=== PATIENT | female | born 1950 | race Caucasian/White ===

== ENCOUNTER → 2016-09-30 | Outpatient (CLI) | payer OTHER ==
[~2016-09-30] MED LIST: ASPEC81 PO; INSDGI SQ; ISOS60TA25 PO; LOSA100T2 PO; NAPR-1169 PO; NITR-5 PO; NVLGI SQ; OMEP40CA PO; PRAV20TA PO; PROB1CAP41 PO; SITA1TAB27 PO; SOTA80TA PO; TAMS0.4C38 PO
== END | disposition home or self-care (01) ==
LOC: C.LAB 12:41
PROVIDERS: ATTEND Nurse Practitioner Adult Health
DX: N39.0 Urinary tract infection, site not specified (principal); N39.41 Urge incontinence

== ENCOUNTER → 2016-12-17 | Outpatient (CLI) | payer OTHER ==
[~2016-12-17] MED LIST changes: +AMLO-114 PO; +CPR500 PO; +CZR50 PO; +FAMO1TAB47 PO; +FERR1TAB13 PO; +HYDR-5688 PO; +INSDGIPEN SC; +ISOS-10 PO; +NRV/10 PO; +NRV/5 PO; +NVLGI/PEN SQ
== END | disposition home or self-care (01) ==
LOC: C.LABSPEC 15:27
PROVIDERS: ATTEND Urology
DX: R39.15 Urgency of urination (principal); R35.0 Frequency of micturition

== ENCOUNTER → 2017-01-17 | Outpatient (CLI) | payer OTHER | END | disposition home or self-care (01) | LOC: C.LABSPEC 17:12 | PROVIDERS: ATTEND Nurse Practitioner Adult Health | DX: N39.0 Urinary tract infection, site not specified (principal); R31.0 Gross hematuria ==

== ENCOUNTER → 2017-02-03 | Outpatient (CLI) | payer OTHER | END | disposition home or self-care (01) | LOC: C.LABSPEC 17:27 | PROVIDERS: ATTEND Nurse Practitioner Family | DX: N39.0 Urinary tract infection, site not specified (principal); R39.15 Urgency of urination; R31.29 Other microscopic hematuria; R35.0 Frequency of micturition ==

== ENCOUNTER → 2017-04-11 | Outpatient (CLI) | payer OTHER ==
[~2017-04-11] MED LIST changes: -AMLO-114 PO; -CPR500 PO; -CZR50 PO; -FAMO1TAB47 PO; -FERR1TAB13 PO; -HYDR-5688 PO; -INSDGIPEN SC; -ISOS-10 PO; -NRV/10 PO; -NRV/5 PO; -NVLGI/PEN SQ
== END | disposition home or self-care (01) ==
LOC: C.LABSPEC 11:08
PROVIDERS: ATTEND Urology
DX: N39.41 Urge incontinence (principal)

== ENCOUNTER → 2017-05-23 | Outpatient (CLI) | payer OTHER | END | disposition home or self-care (01) | LOC: C.LABSPEC 17:00 | PROVIDERS: ATTEND Urology | DX: N39.0 Urinary tract infection, site not specified (principal) ==

== ENCOUNTER → 2017-06-29 | Outpatient (CLI) | payer OTHER ==
[~2017-06-29] MED LIST changes: +CZR50 PO; +FAMO1TAB47 PO; +FERR1TAB13 PO; +INSDGIPEN SC; +ISOS-10 PO; +NRV/5 PO; +NVLGI/PEN SQ
== END | disposition home or self-care (01) ==
LOC: C.LABSPEC 17:04
PROVIDERS: ATTEND Urology
DX: N39.0 Urinary tract infection, site not specified (principal)

== ENCOUNTER 2017-07-01 12:51 | Inpatient (IN) | payer OTHER ==
[~2017-07-01] VITALS: Ht 160 cm; Wt 110.6 kg
[~2017-07-01 12:51] MED LIST changes: -CZR50 PO; -FAMO1TAB47 PO; -FERR1TAB13 PO; -INSDGIPEN SC; -ISOS-10 PO; -NRV/5 PO; -NVLGI/PEN SQ
[2017-07-01] MEDS ORDERED: NRV/5 PO (13:32)
[2017-07-01] MEDS ORDERED: FERR1TAB13 PO (13:32)
[2017-07-01] MEDS ORDERED: ISOS-10 PO (13:32)
[2017-07-01] MEDS ORDERED: CZR50 PO (13:32)
[2017-07-01] MEDS ORDERED: FAMO1TAB47 PO (13:32)
[2017-07-01] MEDS ORDERED: PRAV20TA PO (13:32)
[2017-07-01] MEDS ORDERED: NVLGI/PEN SQ (13:32)
[2017-07-01] MEDS ORDERED: INSDGIPEN SC (13:32)
[2017-07-01] MEDS ORDERED: SODIUM CHLORIDE 0.9% 1000ML 1,000 ML IV STA (14:14)
--- NOTE | 2017-07-01 14:15 | EMERGENCY ROOM VISIT NOTE ---
History Report prepared by Kj: Jarod Conklin Under the Supervision of: Dr. Lexis Ward M.D. First contact with patient: 13:55 Chief Complaint: OTHER COMPLAINT Stated Complaint: KIDNEY BLOCKAGE, SENT BY DR PIKE History of Present Illness The patient is a 67 year old female with kidney failure who presents to the Emergency Room with complaints of persistent flank pain and abdominal pain that started earlier this morning. She says that she has blockages in her kidneys and is in kidney failure. The patient states that she was scheduled to have surgery on the May to have a scope of her bladder, but did not have it. She follows-up with Dr. Emanuel of urology. She adds that she was seen nephrology in [place] 4 days ago, and had an ultrasound, and was told that she needed to have emergency surgery to have 2 stents placed. The patient was told that nephrology would call Dr. Emanuel about the issue. The patient adds that she is currently being treated for a UTI has well. She notes that she woke up today with back pain and abdominal cramping, so she called her nephrology office, and was told to come here because she still needs the emergency stent placement. Source of History: patient Onset: This morning Position: abdomen Symptom Intensity: says needs emergency stent placement Quality: other (cramping) Timing: other (persistent) Note: Associated symptoms: Bilateral flank pain. Review of Systems See HPI for pertinent positives & negatives. A total of 10 systems reviewed and were otherwise negative. Past Medical & Surgical Medical Problems: (1) bilateral hydroureternephrosis (2) Diabetes (3) Heart disease (4) HTN (hypertension) Family History Cancer Diabetes mellitus Heart disease Kidney disease Social History Smoking Status: Never Smoker Smokeless Tobacco Use: No Alcohol Use: occasionally Marital Status: Occupation Status: retired Current/Historical Medications Scheduled Amlodipine Besylate (Amlodipine Besylate), 5 MG PO QAM Famotidine (Famotidine), 20 MG PO BID Ferrous Sulfate (Kp Ferrous Sulfate), 325 MG PO BID Insulin Aspart (Novolog Flexpen), 4 UNITS SQ TIDM Insulin Glargine (Lantus Solostar), 10 UNITS SC HS Isosorbide Mononitrate (Isosorbide Mononitrate ER), 60 MG PO QAM Losartan Potassium (Losartan Potassium), 50 MG PO DAILY Pravastatin (Pravachol ), 20 MG PO HS Allergies Coded Allergies: No Known Allergies (Verified , 07/01/17) Physical Exam Vital Signs Date Time Temp Pulse Resp B/P (MAP) Pulse Ox O2 Delivery O2 Flow Rate FiO2 07/01/17 16:18 98 Room Air 07/01/17 15:26 63 162/78 98 Room Air 07/01/17 14:36 66 07/01/17 14:31 68 18 153/74 96 Room Air 07/01/17 13:00 36.9 74 20 167/87 97 Room Air Physical Exam Vital signs reviewed. General: Well-appearing 67 year old female, in no significant distress. HEENT: No scleral icterus, PERRLA, neck supple. Atraumatic. Cardiovascular: Regular rate and rhythm, no extra sounds. Pulmonary: Clear to auscultation bilaterally, normal work of breathing. Abdomen: Obese abdomen. Soft, nontender, nondistended, positive bowel sounds. Musculoskeletal: Atraumatic, no peripheral edema. No significant CVA tenderness. Neurologic: Patient awake alert and oriented x 3, full strength in all 4 extremities. Cranial nerves 2 through 12 grossly intact. Skin: Warm, dry, no rash Medical Decision & Procedures ER Provider Diagnostic Interpretation: CT results as stated below per my review and radiologist interpretation: CT SCAN OF THE ABDOMEN AND PELVIS WITHOUT IV CONTRAST CLINICAL HISTORY: Bilateral flank pain. COMPARISON STUDY: Abdominal CT dated 08/12/2015. TECHNIQUE: CT scan of the abdomen and pelvis is performed from the lung bases to the proximal femora. Images are reviewed in the axial, sagittal, and coronal planes. IV contrast was not administered for this examination as per the referring clinician due to poor renal function. Note that the examination is suboptimal without IV contrast. A dose lowering technique was utilized adhering to the principles of ALARA. CT DOSE: 994.54 mGycm FINDINGS: Lung bases: The heart is normal in size and without pericardial effusion. The coronary arteries are densely calcified. The lung bases are clear. Liver: The unenhanced liver is normal in size and heterogeneous in attenuation. There is nodularity of the hepatic surface contour suggesting early change of cirrhosis. There is no intrahepatic biliary ductal dilatation. Gallbladder: There are calcified gallstones. Spleen: Normal in size and attenuation. Pancreas: The unenhanced pancreas is atrophic and grossly unremarkable. Adrenal glands: Unremarkable. Kidneys: The unenhanced kidneys are atrophic. There is moderate to severe bilateral hydroureteronephrosis. The ureters are dilated to the level of the abnormal bladder. There are no renal calculi identified. There is no evidence of contour deforming renal mass lesion. There is mild nonspecific bilateral perinephric stranding. Abdominal vasculature: The abdominal aorta is normal in course and caliber noting advanced atherosclerotic calcification. Bowel: There is moderate to advanced diverticulosis of the left colon without CT evidence of acute diverticulitis. No bowel obstruction is seen. The appendix is not identified Peritoneum: There is no intraperitoneal free air or abdominal ascites. There is a small fat-containing umbilical hernia. Lymphadenopathy: None. Pelvic viscera: The bladder is decompressed. The bladder wall is thickened and there is extensive pericystic inflammation. A small focus of intraluminal gas is identified. The uterus is surgically absent. No adnexal lesion is seen. Skeletal structures: The skeletal structures are osteopenic. Moderate lumbosacral spondylosis is observed. No lytic or blastic lesions are seen. IMPRESSION: 1. Although decompressed, the bladder wall is markedly thickened and there is extensive pericystic inflammation. Findings are highly concerning for cystitis. Correlation with clinical findings and urinalysis will be required. 2. There is a small focus of gas within the bladder lumen. This could be related to infection or recent instrumentation. Again, correlation with clinical findings and urinalysis will be required. 3. There is moderate to severe bilateral hydroureteronephrosis, with the ureters dilated to the level of the abnormal bladder. This may represent obstruction secondary to bladder wall edema. Follow-up with urology is recommended. 4. Bilateral perinephric stranding is noted. Ascending infection is not excluded. 5. The liver demonstrates early changes of cirrhosis. 6. Cholelithiasis. 7. The coronary arteries and abdominal aorta are densely calcified. 8. Moderate to advanced diverticulosis of left colon without CT evidence of acute diverticulitis. Electronically signed by: Sonu Rebollar M.D. 07/01/2017 3:25 PM Dictated Date/Time: 07/01/2017 3:19 PM Laboratory Results Test 07/01/17 14:05 Anisocytosis PRESENT Microcytosis PRESENT Prothrombin Time 11.2 SECONDS (9.0-12.0) Prothromb Time International Ratio 1.0 (0.9-1.1) Total Bilirubin 0.3 mg/dl (0.2-1) Direct Bilirubin < 0.1 mg/dl (0-0.2) Aspartate Amino Transf (AST/SGOT) 19 U/L (15-37) Alanine Aminotransferase (ALT/SGPT) 16 U/L (12-78) Alkaline Phosphatase 76 U/L (45-117) Total Protein 8.4 gm/dl (6.4-8.2) Albumin 3.5 gm/dl (3.4-5.0) Hepatitis C Antibody Screen NEG (NEG) Laboratory results per my review. Medications Administered Medications (Trade) Dose Ordered Sig/Chio Route Start Time Stop Time Status Last Admin Dose Admin Sodium Chloride 1,000 ml @ 125 mls/hr Q8H STAT IV 07/01/17 14:14 07/01/17 19:46 DC 07/01/17 15:23 125 MLS/HR Cefepime HCl 1000 mg/Dextrose 111.3 ml @ 200 mls/hr NOW STAT IV 07/01/17 15:13 07/01/17 15:46 DC 07/01/17 15:37 200 MLS/HR Acetaminophen (Tylenol Tab) 650 mg Q4H PRN PO 07/01/17 16:45 07/31/17 16:44 07/03/17 02:37 650 MG ECG Indication: abdominal pain Rate (beats per minute): 65 Rhythm: normal sinus Findings: PAC, no acute ischemic change, other (LVH) ED Course 1403: Past medical records reviewed. The patient was evaluated in room C3. A complete history and physical examination was performed. 1411: I discussed the patient with Dr. Parish [facility] urology. 1414: Ordered NSS 1000 ml @ 125 mls/hr IV. 1513: Ordered Cefepime HCl 1000 mg/Dextrose 111.3 ml @ 200 mls/hr IV. 1540: I discussed the patient with Dr. Donald [facility] urology - he agrees that the patient should be evaluated for further treatment. He will see the patient in the hospital. 1554: Upon reevaluation, the patient is resting comfortably. I discussed laboratory and radiographic results with her. She verbalized agreement of the treatment plan. The patient will be evaluated for further management and care. 1700: I discussed the patient with Dr. Any SAHNI certification officer - he will evaluate the patient for further treatment. Medical Decision Differential Diagnosis: UTI, renal obstruction, malignancy, kidney stone, musculoskeletal back pain. This patient was evaluated and appeared to be in no significant distress. IV access was obtained and laboratory work was Drawn. Patient was hydrated with normal saline solution. Laboratory work reveals an elevated creatinine. Records were obtained from the patient's dietetics director. Her creatinine seems to be stable with recent values. I did speak with Dr. Bennett of urology who has recommended a noncontrast CT scan of the abdomen and pelvis. This study is consistent with a bilateral hydronephrosis and bladder wall thickening. Patient 's previous urinalysis is resistant to multiple antibiotics. The urine cultures susceptible to IV cefepime. Given the patient's impaired creatinine clearance, she was given 1 g IV. A fresh urine culture was sent today prior to antibiotic therapy. The CT scan abdomen and pelvis was discussed with Dr. Bennett. A Degroot catheter was placed by his request. The patient will be evaluated by the hospitalist service for admission and further management by urology. The patient seems happy with this plan and agrees. Medication Reconcilliation Current Medication List: was personally reviewed by me Blood Pressure Screening Patient's blood pressure: Elevated blood pressure Referred to hospitalist. Consults Time Called: 1408 Consulting Physician: Dr. Parish [facility] urology Returned Call: 1411 I discussed the patient with Dr. Parish [facility] urology. Additional Consults: Time Called: 1535 Consulted Physician: Dr. Donald [facility]NI urology Returned Call: 1540 Additional Comments: I discussed the patient with Dr. Donald SAHNI urology - he agrees that the patient should be evaluated for further treatment. He will see the patient in the hospital. Time Called: 1630 Consulted Physician: Dr. Any SAHNI certification officer Returned Call: 1700 Additional Comments: I discussed the patient with Dr. Any SAHNI certification officer - he will evaluate the patient for further treatment. Impression Primary Impression: Bilateral hydronephrosis Additional Impression: UTI (urinary tract infection) Scribe Attestation The scribe's documentation has been prepared under my direction and personally reviewed by me in its entirety. I confirm that the note above accurately reflects all work, treatment, procedures, and medical decision making performed by me. Departure Information Dispostion Being Evaluated By Hospitalist Referrals Issac May M.D. (PCP) Patient Instructions My [facility] Problem Qualifiers
[2017-07-01 14:29] LABS: BASO % 0.7 %; BASO ABS # 0.04 K/uL (0-0.2); EOS % 0.8 %; HEMATOCRIT 38.4 % (37-47); IG% 0.3 %; LYMPH % 30.5 %; LYMPH ABS # 1.87 K/uL (1.2-3.4); MEAN CELL VOLUME 78.2 fL (80-100); MEAN CORPUSCULAR HEMOGLOBIN 25.1 pg (25-34); MEAN PLATELET VOLUME 10.9 fL (7.4-10.4); MONO % 8.6 %; NEUT % 59.1 %; PLATELET COUNT 323 K/uL (130-400); RED BLOOD COUNT 4.91 M/uL (4.2-5.4); WHITE BLOOD COUNT 6.13 K/uL (4.8-10.8)
[2017-07-01 14:46] LABS: ALT/SGPT 16 U/L (12-78); BLOOD UREA NITROGEN 29 mg/dl (7-18); BUN/CREATININE RATIO 12.9 (10-20); CALCIUM 9.4 mg/dl (8.5-10.1); CARBON DIOXIDE 23 mmol/L (21-32); CHLORIDE 107 mmol/L (98-107); CREATININE 2.24 mg/dl (0.60-1.20); GLUCOSE 118 mg/dl (70-99); POTASSIUM 4.1 mmol/L (3.5-5.1); SODIUM 137 mmol/L (136-145)
[2017-07-01 14:49] LABS: ALKALINE PHOSPHATASE 76 U/L (45-117); AST/SGOT 19 U/L (15-37)
[2017-07-01 14:50] LABS: MANUAL MICROSCOPIC REQUIRED? NO; REVIEW REQ? NO; URINE APPEARANCE TURBID (CLEAR); URINE BILIRUBIN NEG (NEG); URINE COLOR YELLOW; URINE NITRITE NEG (NEG); URINE SPECIFIC GRAVITY 1.013 (1.000-1.030); UROBILINOGEN NEG (NEG); ZZUR CULT IF INDIC CLEAN CATCH YES
[2017-07-01] MEDS ORDERED: CEFEPIME IV 1,000 MG in DEXTROSE 5% 100ML 100 ML IV STA (15:13)
--- NOTE | 2017-07-01 15:27 | DIAGNOSTIC IMAGING REPORT ---
CT SCAN OF THE ABDOMEN AND PELVIS WITHOUT IV CONTRAST CLINICAL HISTORY: Bilateral flank pain. COMPARISON STUDY: Abdominal CT dated 08/12/2015. TECHNIQUE: CT scan of the abdomen and pelvis is performed from the lung bases to the proximal femora. Images are reviewed in the axial, sagittal, and coronal planes. IV contrast was not administered for this examination as per the referring clinician due to poor renal function. Note that the examination is suboptimal without IV contrast. A dose lowering technique was utilized adhering to the principles of ALARA. CT DOSE: 994.54 mGycm FINDINGS: Lung bases: The heart is normal in size and without pericardial effusion. The coronary arteries are densely calcified. The lung bases are clear. Liver: The unenhanced liver is normal in size and heterogeneous in attenuation. There is nodularity of the hepatic surface contour suggesting early change of cirrhosis. There is no intrahepatic biliary ductal dilatation. Gallbladder: There are calcified gallstones. Spleen: Normal in size and attenuation. Pancreas: The unenhanced pancreas is atrophic and grossly unremarkable. Adrenal glands: Unremarkable. Kidneys: The unenhanced kidneys are atrophic. There is moderate to severe bilateral hydroureteronephrosis. The ureters are dilated to the level of the abnormal bladder. There are no renal calculi identified. There is no evidence of contour deforming renal mass lesion. There is mild nonspecific bilateral perinephric stranding. Abdominal vasculature: The abdominal aorta is normal in course and caliber noting advanced atherosclerotic calcification. Bowel: There is moderate to advanced diverticulosis of the left colon without CT evidence of acute diverticulitis. No bowel obstruction is seen. The appendix is not identified Peritoneum: There is no intraperitoneal free air or abdominal ascites. There is a small fat-containing umbilical hernia. Lymphadenopathy: None. Pelvic viscera: The bladder is decompressed. The bladder wall is thickened and there is extensive pericystic inflammation. A small focus of intraluminal gas is identified. The uterus is surgically absent. No adnexal lesion is seen. Skeletal structures: The skeletal structures are osteopenic. Moderate lumbosacral spondylosis is observed. No lytic or blastic lesions are seen. IMPRESSION: 1. Although decompressed, the bladder wall is markedly thickened and there is extensive pericystic inflammation. Findings are highly concerning for cystitis. Correlation with clinical findings and urinalysis will be required. 2. There is a small focus of gas within the bladder lumen. This could be related to infection or recent instrumentation. Again, correlation with clinical findings and urinalysis will be required. 3. There is moderate to severe bilateral hydroureteronephrosis, with the ureters dilated to the level of the abnormal bladder. This may represent obstruction secondary to bladder wall edema. Follow-up with urology is recommended. 4. Bilateral perinephric stranding is noted. Ascending infection is not excluded. 5. The liver demonstrates early changes of cirrhosis. 6. Cholelithiasis. 7. The coronary arteries and abdominal aorta are densely calcified. 8. Moderate to advanced diverticulosis of left colon without CT evidence of acute diverticulitis. Electronically signed by: Sonu Rebollar M.D. 07/01/2017 3:25 PM Dictated Date/Time: 07/01/2017 3:19 PM
[2017-07-01 16:03] LABS: ANISOCYTOSIS PRESENT; COMPLETE YES; MICROCYTOSIS PRESENT
[2017-07-01 16:18] VITALS: O2SAT 98; Ht 160 cm; Wt 110.6 kg
--- NOTE | 2017-07-01 16:35 | History and Physical ---
History & Physical Date & Time of Service: Jul 01, 2017 at 16:28 Chief Complaint: Kidney Blockage, Sent By Dr Linares Primary Care Physician: Issac May M.D. History of Present Illness Source: patient This is 67 yo F with PMHx of DM II, HTN, morbid obesity, recurrent UTIs, gross hematuria, incontinence, bladder lesions and arthritis who presented with abdominal cramping and low back pain. Pt was recently see by Dr. Emanuel in the urology clinic yesterday; at that time it was decided to plan for cystoscopy possible ureteroscopy and possible stenting due to findings on imaging. The patient had a recent renal US and showed hydronephrosis, today a renal US shows bilateral hydroureteronephrosis and mild perinephritic stranding. The patient was recently hospitalized at the end of May for urosepsis and was treated for e.coli. Other medical history includes botox injections to the bladder, had nerve stimulation for bladder, and transvaginal bladder physical therapy. She reports multiple antibiotics have not worked to treat her UTIs, and that with the developing back pain today she was more concerned her current antibiotic wasn't working. UTIs have been presents for >1year, and follows with nephrology closely in [place]. She was recently had a UA done on 06/23 which grew out E.coli, so has been taking an antibiotic x 8 days now. She thinks this antibiotic was keflex BID but is unsure. Pt has been eating and drinking well, and has adequate urine output. Pt admits to incontinence and therefore wears a pad. She denies any fever, chills or sweats, hematuria, dysuria. Past Medical/Surgical History Medical Problems: (1) Diabetes Status: Chronic (2) Heart disease Status: Resolved (3) HTN (hypertension) Status: Chronic morbid obesity recurrent UTIs gross hematuria incontinence bladder lesion arthritis Family History Cancer Diabetes mellitus Heart disease Kidney disease Social History Smoking Status: Never Smoker Smokeless Tobacco Use: No Alcohol Use: none Drug Use: none Marital Status: Occupational Status: retired Immunizations History of Influenza Vaccine: Yes Influenza Vaccine Date: Jul 27, 2006 History of Tetanus Vaccine?: Unknown History of Pneumococcal: No History of Hepatitis B Vaccine: No Allergies Coded Allergies: No Known Allergies (Verified , 07/01/17) Home Medications Scheduled Amlodipine Besylate (Amlodipine Besylate), 5 MG PO QAM Famotidine (Famotidine), 20 MG PO BID Ferrous Sulfate (Kp Ferrous Sulfate), 325 MG PO BID Insulin Aspart (Novolog Flexpen), 4 UNITS SQ TIDM Insulin Glargine (Lantus Solostar), 10 UNITS SC HS Isosorbide Mononitrate (Isosorbide Mononitrate ER), 60 MG PO QAM Losartan Potassium (Losartan Potassium), 50 MG PO DAILY Pravastatin (Pravachol ), 20 MG PO HS Review of Systems Constitutional: No fever, No chills, No sweats, No fatigue Eyes: No diplopia, No problem reported ENT: No sore throat, No trouble swallowing Respiratory: No shortness of breath, No hemoptysis Cardiovascular: No chest pain, No orthopnea, No edema Abdomen: No pain, No nausea, No vomiting, No diarrhea, No constipation Musculoskeletal: No joint pain, No swelling, No calf pain Genitourinary - Female: + urinary incontinence, No dysuria, No urinary frequency, No hematuria Neurologic: No memory loss, No numbness/tingling Psychiatric: + anxiety, No depression symptoms Endocrine: No fatigue Integumentary: No rash, No itch Physical Exam Vital Signs Date Time Temp Pulse Resp B/P (MAP) Pulse Ox O2 Delivery O2 Flow Rate FiO2 07/01/17 15:26 63 162/78 98 Room Air 07/01/17 14:36 66 07/01/17 14:31 68 18 153/74 96 Room Air 07/01/17 13:00 36.9 74 20 167/87 97 Room Air General Appearance: WD/WN, no apparent distress, + obese (morbid) Head: normocephalic, atraumatic Eyes: PERRL, EOMI, + pertinent finding (no scleral icterus) ENT: hearing grossly normal, pharynx normal Neck: supple, no JVD Respiratory/Chest: lungs clear, no respiratory distress, no accessory muscle use Cardiovascular: regular rate, rhythm (with few extra beats), no JVD, no murmur , normal peripheral pulses Abdomen/GI: normal bowel sounds, non tender, soft Back: normal inspection Extremities/Musculoskelatal: no calf tenderness, no pedal edema Neurologic/Psych: alert, normal mood/affect, oriented x 3 Skin: normal color, warm/dry Diagnostics Laboratory Results Results Past 24 Hours Test 10/20/17 11:25 07/01/17 14:05 Range/Units Urine Color YELLOW Urine Appearance TURBID CLEAR Urine pH 6.0 4.5-7.5 Urine Specific Campbell 1.013 1.000-1.030 Urine Protein 1+ NEG Urine Glucose (UA) 1+ NEG Urine Ketones NEG NEG Urine Occult Blood 2+ NEG Urine Nitrite NEG NEG Urine Bilirubin NEG NEG Urine Urobilinogen NEG NEG Urine Leukocyte Esterase LARGE NEG Urine WBC (Auto) >30 0-5 /hpf Urine RBC (Auto) >30 0-4 /hpf Urine Hyaline Casts (Auto) 1-5 0-5 /lpf Urine Epithelial Cells (Auto) 5-10 0-5 /lpf Urine Bacteria (Auto) NEG NEG White Blood Count 6.13 4.8-10.8 K/uL Red Blood Count 4.91 4.2-5.4 M/uL Hemoglobin 12.3 12.0-16.0 g/dL Hematocrit 38.4 37-47 % Mean Corpuscular Volume 78.2 80-100 fL Mean Corpuscular Hemoglobin 25.1 25-34 pg Mean Corpuscular Hemoglobin Concent 32.0 32-36 g/dl Platelet Count 323 130-400 K/uL Mean Platelet Volume 10.9 7.4-10.4 fL Neutrophils (%) (Auto) 59.1 % Lymphocytes (%) (Auto) 30.5 % Monocytes (%) (Auto) 8.6 % Eosinophils (%) (Auto) 0.8 % Basophils (%) (Auto) 0.7 % Neutrophils # (Auto) 3.62 1.4-6.5 K/uL Lymphocytes # (Auto) 1.87 1.2-3.4 K/uL Monocytes # (Auto) 0.53 0.11-0.59 K/uL Eosinophils # (Auto) 0.05 0-0.5 K/uL Basophils # (Auto) 0.04 0-0.2 K/uL RDW Standard Deviation 58.6 36.4-46.3 fL RDW Coefficient of Variation 20.4 11.5-14.5 % Immature Granulocyte % (Auto) 0.3 % Immature Granulocyte # (Auto) 0.02 0.00-0.02 K/uL Anisocytosis PRESENT Microcytosis PRESENT Sodium Level 137 136-145 mmol/L Potassium Level 4.1 3.5-5.1 mmol/L Chloride Level 107 98-107 mmol/L Carbon Dioxide Level 23 21-32 mmol/L Anion Gap 7.0 3-11 mmol/L Blood Urea Nitrogen 29 7-18 mg/dl Creatinine 2.24 0.60-1.20 mg/dl Est Creatinine Clear Calc Drug Dose 29.5 ml/min Estimated GFR () 25.6 Estimated GFR (Non- 22.1 BUN/Creatinine Ratio 12.9 10-20 Random Glucose 118 70-99 mg/dl Calcium Level 9.4 8.5-10.1 mg/dl Total Bilirubin 0.3 0.2-1 mg/dl Direct Bilirubin < 0.1 0-0.2 mg/dl Aspartate Amino Transf (AST/SGOT) 19 15-37 U/L Alanine Aminotransferase (ALT/SGPT) 16 12-78 U/L Alkaline Phosphatase 76 45-117 U/L Total Protein 8.4 6.4-8.2 gm/dl Albumin 3.5 3.4-5.0 gm/dl Diagnostic Radiology CT SCAN OF THE ABDOMEN AND PELVIS WITHOUT IV CONTRAST CLINICAL HISTORY: Bilateral flank pain. COMPARISON STUDY: Abdominal CT dated 08/12/2015. TECHNIQUE: CT scan of the abdomen and pelvis is performed from the lung bases to the proximal femora. Images are reviewed in the axial, sagittal, and coronal planes. IV contrast was not administered for this examination as per the referring clinician due to poor renal function. Note that the examination is suboptimal without IV contrast. A dose lowering technique was utilized adhering to the principles of ALARA. CT DOSE: 994.54 mGycm FINDINGS: Lung bases: The heart is normal in size and without pericardial effusion. The coronary arteries are densely calcified. The lung bases are clear. Liver: The unenhanced liver is normal in size and heterogeneous in attenuation. There is nodularity of the hepatic surface contour suggesting early change of cirrhosis. There is no intrahepatic biliary ductal dilatation. Gallbladder: There are calcified gallstones. Spleen: Normal in size and attenuation. Pancreas: The unenhanced pancreas is atrophic and grossly unremarkable. Adrenal glands: Unremarkable. Kidneys: The unenhanced kidneys are atrophic. There is moderate to severe bilateral hydroureteronephrosis. The ureters are dilated to the level of the abnormal bladder. There are no renal calculi identified. There is no evidence of contour deforming renal mass lesion. There is mild nonspecific bilateral perinephric stranding. Abdominal vasculature: The abdominal aorta is normal in course and caliber noting advanced atherosclerotic calcification. Bowel: There is moderate to advanced diverticulosis of the left colon without CT evidence of acute diverticulitis. No bowel obstruction is seen. The appendix is not identified Peritoneum: There is no intraperitoneal free air or abdominal ascites. There is a small fat-containing umbilical hernia. Lymphadenopathy: None. Pelvic viscera: The bladder is decompressed. The bladder wall is thickened and there is extensive pericystic inflammation. A small focus of intraluminal gas is identified. The uterus is surgically absent. No adnexal lesion is seen. Skeletal structures: The skeletal structures are osteopenic. Moderate lumbosacral spondylosis is observed. No lytic or blastic lesions are seen. IMPRESSION: 1. Although decompressed, the bladder wall is markedly thickened and there is extensive pericystic inflammation. Findings are highly concerning for cystitis. Correlation with clinical findings and urinalysis will be required. 2. There is a small focus of gas within the bladder lumen. This could be related to infection or recent instrumentation. Again, correlation with clinical findings and urinalysis will be required. 3. There is moderate to severe bilateral hydroureteronephrosis, with the ureters dilated to the level of the abnormal bladder. This may represent obstruction secondary to bladder wall edema. Follow-up with urology is recommended. 4. Bilateral perinephric stranding is noted. Ascending infection is not excluded. 5. The liver demonstrates early changes of cirrhosis. 6. Cholelithiasis. 7. The coronary arteries and abdominal aorta are densely calcified. 8. Moderate to advanced diverticulosis of left colon without CT evidence of acute diverticulitis. Electronically signed by: Sonu Rebollar M.D. 07/01/2017 3:25 PM Dictated Date/Time: 07/01/2017 3:19 PM The status of this report is Signed. EKG Sinus rhythm with Premature atrial complexes Minimal voltage criteria for LVH, may be normal variant Borderline ECG When compared with ECG of 12-AUG-2015 13:42, Premature atrial complexes are now Present Vent. rate 65 BPM AK interval 152 ms QRS duration 66 ms QT/QTc 382/397 ms P-R-T axes 64 -8 12 Impression Assessment and Plan This is 67 yo F with PMHx of DM II, HTN, morbid obesity, recurrent UTIs, gross hematuria, incontinence, bladder lesion and arthritis who presented with abdominal cramping and low back pain. Cystitis UTI in setting of recurrent UTIs - e.coli Hx of interstitial cystitis with hunner's lesions - Etiology unknown at this time - possibly from recurrent uti or inflammatory cystitis such as eosinophilic cystitis - Admit to med/surg - No leukocytosis, afebrile. - Cefepime started in the ER- continue for now - Insert cates and monitor strict I/Os with NSS at 125 mL/hr - check cath UA and UCx and follow. - Urology consulted- Discussion held with Dr. Bennett: no plans for surgical intervention at this time - no stenting needed as urine flowing through ureters int the bladder, no obstruction. Stenting might actually exacerbate the current issue. - Can consider the use of steroids to decrease inflammation around the bladder as reviewed on CT scan. - Imaging reviewed as above CKD stage III - Cr at 2.2, on review of outpatient records her cr was the same about 10 days ago. Pt reports she has been eating and drinking well. This is likely her baseline. - Continue IVFs as above HTN - Continue losartan 50 mg daily, imdur 60 mg qam and amlodipine 5 mg daily DM II - Lantus 10 U HS and ISS with accuchecks - diabetic and heart healthy diet HDL - continue pravastatin 20 mg hs Morbid obesity - diet and exercise was encouraged at bedside, and should be touched upon prior to discharge from the hospital. DVT ppx: Teds, scds, heparin sub q CODE STATUS: FULL CODE Disposition: From home, discharge likely within 1-2 days Resident Physician Supervision Note: I was present with the PA during the history and exam. I discussed the case with the PA and agree with the findings and plan as documented in the note. Any exceptions or clarifications are listed here: 67 y/o F Hx recurrent UTIs with resistant org, HTN, HPL, DMII - presenting with abdominal pain - initial labs reveal worsening renal function and a CT reveals b /l hydroureteronephrosis without clear source of obstruction - UA is additionally + OE AAO x 3 S1,2 R CTAB Mildly tender to palpation of flanks No CCE P: Consulted with urologist - catheter will be placed overnight and IVF provided - suspect that obstruction may be due to bladder inflammation - additional workup to follow if no improvement is realized Will treat with Cefepime for UTI - per recent micro - resistant Ecoli Above discussed with urologist, PA, Pt Documented By: Shabbir Agarwal Level of Care Med/Surg Advanced Directives Existing Living Will: Yes Existing Power of Deportation Officer: Yes (LLOYD SON ) Resuscitation Status FULL RESUSCITATION VTE Prophylaxis Risk Level: Low Given or contraindicated: Unfractionated heparin SQ, T.E.D. Stockings, SCD's
[2017-07-01] MEDS ORDERED: MAGNESIUM HYDROXIDE SUSP 30 ML UDC PO PRN (16:45)
[2017-07-01] MEDS ORDERED: ONDANSETRON INJ 2 MG/ML 2 ML VIAL IV PRN (16:45)
[2017-07-01] MEDS ORDERED: POLYETHYLENE (MIRALAX) 17 GM PACK PO PRN (16:45)
[2017-07-01] MEDS ORDERED: DEXTROSE 50% 50 ML SYR IV PRN ×2 (17:15→17:30)
[2017-07-01] MEDS ORDERED: LIDOCAINE HCL 2% JELLY 30 ML TUBE EXT ONE ×2 (17:15→17:27)
[2017-07-01] MEDS ORDERED: GLUCOSE 40% GEL 15 GM TUBE PO PRN ×2 (17:15→17:30)
[2017-07-01] MEDS ORDERED: GLUCOSE 10 TABS/TUBE PO PRN ×2 (17:15→17:30)
[2017-07-01] MEDS ORDERED: GLUCAGON FOR INJ 1 MG VIAL SQ PRN ×2 (17:15→17:30)
--- NOTE | 2017-07-01 17:52 | Urology Consultation ---
History General Date of Service: Jul 01, 2017. Chief Complaint: Abd Pain, Renal Failure Primary Care Physician: Issac May M.D. Pt seen a urologist before?: Yes If yes, why?: IC/Hunner Lesions History of Present Illness Patient known to Urology with history of IC with hunner's lesions and frequent UTI. In February had acute renal failure, which improved over time. Cr went as high as 5, but augustine'ed in the 2 range. Since has been working with nephrology. Recently found to have hydronephrosis on MORENITA. Also worsening MultiDrug Resistant UTI's. CT in ER found contracted/inflammed bladder with small volume and bilateral hydroureteronephrosis with dilated insertion into bladder. No stone or obvious obstruction. Severe pericystic inflammation. Diverticulosis without obvious Acute Diverticulitis. Patient states she voids frequently, almost every hour. In all she feels she produces normal urine. Does not have feeling of SOB or peripheral swelling. Currently mild abd pain without significant radiation. Mild and in waves. Tolerable without pain medications. Does have mild irritation when voiding and vaginal discomfort. Imaging Imaging: CT, Ultrasound Laboratory Labs were reviewed and are within normal limits unless listed below. Labs are available in the chart and at [facility] Problem List Medical Problems: (1) Bilateral hydronephrosis Status: Acute (2) UTI (urinary tract infection) Status: Acute Past History diabetes, diverticulosis, pyelonephritis, renal disease, urinary tract infection Pt had a problem w anesthesia?: No Past Surgical History: hysterectomy Family History Cancer Diabetes mellitus Heart disease Kidney disease Social History Hx Tobacco Use In Past Year?: No Marital status: Occupation status: retired Immunizations History of Influenza Vaccine: Yes Influenza Vaccine Date: Jul 27, 2006 History of Tetanus Vaccine?: Unknown History of Pneumococcal: No History of Hepatitis B Vaccine: No Allergies Coded Allergies: No Known Allergies (Verified , 07/01/17) Medications Home Medications: Home Meds and Scripts Medications Dose Route/Sig Max Daily Dose Days Date Category Novolog Flexpen (Insulin Aspart) 100 Units/Ml Inj 4 Units SQ TIDM 07/01/17 Reported Lantus Solostar (Insulin Glargine) 100 Unit/Ml Inj 10 Units SC HS 07/01/17 Reported Pravachol (Pravastatin Sodium) 20 Mg Tab 20 Mg PO HS 07/01/17 Reported Isosorbide Mononitrate ER (Isosorbide Mononitrate) 60 Mg Tabcr 60 Mg PO QAM 07/01/17 Reported Kp Ferrous Sulfate (Ferrous Sulfate) 325 Mg Tab 325 Mg PO BID 30 07/01/17 Reported Losartan Potassium 50 Mg Tab 50 Mg PO DAILY 07/01/17 Reported Famotidine 20 Mg Tab 20 Mg PO BID 07/01/17 Reported Amlodipine Besylate 5 Mg Tab 5 Mg PO QAM 07/01/17 Reported Inpatient Medications: Current Inpatient Medications Medications (Trade) Dose Ordered Sig/Chio Route Start Time Stop Time Status Last Admin Dose Admin Sodium Chloride 1,000 ml @ 125 mls/hr Q8H STAT IV 07/01/17 14:14 07/01/17 22:13 07/01/17 15:23 125 MLS/HR Acetaminophen (Tylenol Tab) 650 mg Q4H PRN PO 07/01/17 16:45 07/31/17 16:44 Magnesium Hydroxide (Milk Of Magnesia Susp) 30 ml Q6H PRN PO 07/01/17 16:45 07/31/17 16:44 UNV Polyethylene (Miralax Powder Packet) 17 gm DAILY PRN PO 07/01/17 16:45 07/31/17 16:44 UNV Ondansetron HCl (Zofran Inj) 4 mg Q6H PRN IV 07/01/17 16:45 07/31/17 16:44 UNV Amlodipine Besylate (Norvasc Tab) 5 mg QAM PO 07/02/17 09:00 08/01/17 08:59 UNV Famotidine (Pepcid Tab) 20 mg BID PO 07/01/17 21:00 07/31/17 20:59 UNV Insulin Glargine (Lantus Solostar Pen) 5 units HS SC 07/01/17 21:00 07/02/17 20:59 UNV Isosorbide Mononitrate (Imdur Ext Rel Tab) 60 mg QAM PO 07/02/17 09:00 08/01/17 08:59 UNV Losartan Potassium (coZAAR TAB) 50 mg DAILY PO 07/02/17 09:00 08/01/17 08:59 UNV Pravastatin Sodium (Pravachol Tab) 20 mg HS PO 07/01/17 21:00 07/31/17 20:59 UNV Ferrous Sulfate (Feosol Tab) 325 mg BIDM PO 07/01/17 18:00 07/31/17 17:59 UNV Insulin Glargine (Lantus Solostar Pen) 10 units HS SC 07/02/17 21:00 08/01/17 20:59 UNV Cefepime HCl 1000 mg/Dextrose 111.3 ml @ 200 mls/hr Q12 IV 07/01/17 21:00 07/06/17 20:59 UNV Sodium Chloride 1,000 ml @ 125 mls/hr Q8H IV 07/01/17 16:52 07/31/17 16:51 UNV Review of Systems Review of Systems All Other Systems: Reviewed and Negative Additional Comments: All systems reviewed. Pertinent positives and negatives in HPI Physical Exam Vital Signs: Vital Signs Past 12 Hours Date Time Temp Pulse Resp B/P (MAP) Pulse Ox O2 Delivery O2 Flow Rate FiO2 07/01/17 17:04 71 07/01/17 16:18 98 Room Air 07/01/17 15:26 63 162/78 98 Room Air 07/01/17 14:36 66 07/01/17 14:31 68 18 153/74 96 Room Air 07/01/17 13:00 36.9 74 20 167/87 97 Room Air Physical Exam: General Appearance: WD/WN, no apparent distress, + obese Eyes: bilateral eyes normal inspection ENT: normal ENT inspection, hearing grossly normal Neck: supple, no JVD Respiratory/Chest: chest non-tender, no respiratory distress, no accessory muscle use Cardiovascular: regular rate, rhythm Gastrointestinal: Abdomen: normal abdomen Bladder: tender Renal: normal renal Genitourinary - Female: External Genitalia: normal external genitalia Urethral Meatus: large Urethra: tenderness Bladder: tender Extremities: normal range of motion, non-tender, no pedal edema Neurologic/Psychiatric: pearler II-XII nml as tested, no motor/sensory deficits, alert, normal mood/affect, oriented x 3 Skin: normal color, warm/dry, no rash Lymphatic: no adenopathy Assessment & Plan Assessment & Plan Imaging: CT 1. Cystitis 2. ADITI on CKD 3 3. Bilateral Hydroureteronephrosis 4. Frequent UTI, Multidrug resistant. 5. Diverticulosis 6. IC with Hunner's lesions Plan: Long conversation with patient and family as well as Hospitalist and ER team. Unsure of source of significant inflammation of bladder. Concern for possible bladder outlet obstruction from cystitis. Hydroureter appears to go to bladder. No obstructing stones or other areas of concern. Patient is producing urine with severe frequency, urgency, and incontinence. ADITI may be prerenal, intrinisic, obstructive, or a combination. At this point, catheter was placed by myself utilizing standard procedure with lidocaine jelly. Approx 200 cc of cloudy, light yellow urine was received. Cath'ed urine specimen sent for analysis. No urethral obstruction was appreciated. Discussed stent placement for hydroureteronephrosis, but concern of worsening cystitis with stents and no obvious obstruction visualized. Recommend treating with broad spectrum for previous MDR species. Hydration and close urinary monitoring. May need urine lytes and studies to determine if intrinsic failure is involved. Will monitor closely. If after observation, obstruction of ureters a concern, can place stents. Will monitor and reassess. Unsure of source of cystitis. May be related to chronic UTI. Also history of interstitial cystitis with hunner's lesions. Inflammatory cystitis such as eosinophilic cystitis also possibility. Also in differential would be colovesical fistula. Patient does have history of chronic, resistent, persistent UTI and diverticulosis. Significant inflammation to bladder and small amount of air also visualized on CT. Patient states she had no recent instrumentation. Will need treatment of UTI and possibly workup for fistula after management of acute renal issues. Will follow.
[2017-07-01 18:36] VITALS: O2SAT 98
[2017-07-01 18:38] LABS: URINE APPEARANCE CLOUDY (CLEAR); URINE BILIRUBIN NEG (NEG); URINE COLOR YELLOW; URINE NITRITE NEG (NEG); URINE SPECIFIC GRAVITY 1.011 (1.000-1.030); UROBILINOGEN NEG (NEG); ZZURINE CULT IF INDIC CATH YES
[2017-07-01 18:43] LABS: MANUAL MICROSCOPIC REQUIRED? NO; REVIEW REQ? YES
[2017-07-01 18:50] VITALS: BP 166/72; PULSE 68; TEMP 36.9; O2SAT 98
[2017-07-01] MEDS: SODIUM CHLORIDE 0.9% 1000ML 1,000 ML IV SCH (19:00)
[2017-07-01 19:24] LABS: PROTHROMBIN TIME (PATIENT) 11.2 SECONDS (9.0-12.0)
[2017-07-01] MEDS: FERROUS SULFATE 325 MG TAB PO SCH (19:39)
[2017-07-01] MEDS ORDERED: INSULIN ASPART 100 UNITS/ML 3 ML PEN SC SCH (21:00)
[2017-07-01] MEDS ORDERED: INSULIN GLARGINE SOLOSTAR 100 UNITS/ML 3 ML PEN SC SCH (21:00)
[2017-07-01] MEDS: FAMOTIDINE 20 MG TAB PO SCH (21:14)
[2017-07-01] MEDS: PRAVASTATIN SOD 20 MG TAB PO SCH (21:15)
[2017-07-01] MEDS: ACETAMINOPHEN 325 MG TAB PO PRN (21:15)
[2017-07-01] MEDS: INSULIN GLARGINE SOLOSTAR 100 UNITS/ML 3 ML PEN SC SCH (21:25)
[2017-07-01] MEDS: HEPARIN SOD 5000 UNIT/0.5 ML CARP SQ SCH (21:25)
[2017-07-01 23:21] VITALS: BP 146/72; PULSE 66; TEMP 36.7; O2SAT 98
[2017-07-02] MEDS: INSULIN ASPART 100 UNITS/ML 3 ML PEN SC SCH ×5 (00:15→21:00)
[2017-07-02] MEDS ORDERED: NURSING VERBAL MED ORDER ONE ×2 (00:15→15:15)
[2017-07-02] MEDS: SODIUM CHLORIDE 0.9% 1000ML 1,000 ML IV SCH ×3 (02:49→18:45)
[2017-07-02] MEDS: CEFEPIME IV 1,000 MG in DEXTROSE 5% 100ML 100 ML IV SCH ×2 (03:47→16:06)
[2017-07-02] MEDS: HEPARIN SOD 5000 UNIT/0.5 ML CARP SQ SCH ×3 (05:54→21:55)
[2017-07-02 06:08] LABS: BASO % 0.4 %; BASO ABS # 0.02 K/uL (0-0.2); EOS % 1.9 %; HEMATOCRIT 33.5 % (37-47); IG% 0.4 %; LYMPH % 34.6 %; LYMPH ABS # 1.84 K/uL (1.2-3.4); MEAN CELL VOLUME 78.8 fL (80-100); MEAN CORPUSCULAR HEMOGLOBIN 24.2 pg (25-34); MEAN CORPUSCULAR HGB CONC 30.7 g/dl (32-36); MEAN PLATELET VOLUME 10.6 fL (7.4-10.4); MONO % 10.5 %; NEUT % 52.2 %; PLATELET COUNT 255 K/uL (130-400); RED BLOOD COUNT 4.25 M/uL (4.2-5.4); WHITE BLOOD COUNT 5.32 K/uL (4.8-10.8)
[2017-07-02 06:40] LABS: COMPLETE YES; HYPOCHROMIA PRESENT
[2017-07-02 07:02] VITALS: BP 168/98; PULSE 62; TEMP 36.8; O2SAT 99
[2017-07-02] MEDS: ACETAMINOPHEN 325 MG TAB PO PRN (09:30)
[2017-07-02] MEDS: ISOSORBIDE MONONITRATE 60 MG TABCR PO SCH (09:31)
[2017-07-02] MEDS: LOSARTAN POTASSIUM 50 MG TAB PO SCH (09:31)
[2017-07-02] MEDS: AMLODIPINE BESYLATE 5 MG TAB PO SCH (09:31)
[2017-07-02] MEDS: FAMOTIDINE 20 MG TAB PO SCH ×2 (09:31→21:54)
[2017-07-02] MEDS: FERROUS SULFATE 325 MG TAB PO SCH ×2 (09:32→18:40)
--- NOTE | 2017-07-02 09:49 | Progress Note ---
Subjective Date of Service: Jul 02, 2017. Subjective Pt evaluation today including: conversation w/ patient, conversation w/ family Pain: Mild suprapubic and back PO Intake: NPO overnight, having breakfast now Voiding: cates catheter in place Patient had 1200 cc after catheter placement by myself from approx 7 to midnight. Good urine output since then. Pain improved. Small clots, but no significant hematuria. Tolerating catheter. Slept well because not up every 30 mins to urinate. No N/V Problem List Medical Problems: (1) Bilateral hydronephrosis Status: Acute (2) UTI (urinary tract infection) Status: Acute Review of Systems All reviewed. Pertinent positives and negatives in HPI All Other Systems: Reviewed and Negative Objective Vital Signs Date Time Temp Pulse Resp B/P (MAP) Pulse Ox O2 Delivery O2 Flow Rate FiO2 07/02/17 07:02 36.8 62 17 168/98 (121) 99 Room Air 07/02/17 00:00 Room Air 07/01/17 23:21 36.7 66 16 146/72 (96) 98 Room Air 07/01/17 19:00 Room Air 07/01/17 18:50 36.9 68 18 166/72 (103) 98 Room Air 07/01/17 18:36 66 167/105 98 07/01/17 17:04 71 07/01/17 16:18 98 Room Air 07/01/17 15:26 63 162/78 98 Room Air 07/01/17 14:36 66 07/01/17 14:31 68 18 153/74 96 Room Air 07/01/17 13:00 36.9 74 20 167/87 97 Room Air Physical Exam General Appearance: WD/WN, no apparent distress Eyes: normal inspection, EOMI ENT: normal ENT inspection, hearing grossly normal Neck: supple, no JVD Respiratory/Chest: no respiratory distress, no accessory muscle use Cardiovascular: regular rate, rhythm Abdomen: soft Extremities: normal range of motion, non-tender Neurologic/Psychiatric: radiological health specialist II-XII nml as tested, no motor/sensory deficits Skin: normal color, warm/dry Lymphatic: no adenopathy Comments: Cates in place draining straw yellow urine. Laboratory Results Last 24 Hours Test 07/01/17 11:25 07/01/17 14:05 07/01/17 18:05 07/01/17 20:51 Urine Color YELLOW YELLOW Urine Appearance TURBID CLOUDY Urine pH 6.0 6.0 Urine Specific [place] 1.013 1.011 Urine Protein 1+ 1+ Urine Glucose (UA) 1+ NEG Urine Ketones NEG NEG Urine Occult Blood 2+ 2+ Urine Nitrite NEG NEG Urine Bilirubin NEG NEG Urine Urobilinogen NEG NEG Urine Leukocyte Esterase LARGE LARGE Urine WBC (Auto) >30 /hpf >30 /hpf Urine RBC (Auto) >30 /hpf >30 /hpf Urine Hyaline Casts (Auto) 1-5 /lpf 0 /lpf Urine Epithelial Cells (Auto) 5-10 /lpf 5-10 /lpf Urine Bacteria (Auto) NEG NEG White Blood Count 6.13 K/uL Red Blood Count 4.91 M/uL Hemoglobin 12.3 g/dL Hematocrit 38.4 % Mean Corpuscular Volume 78.2 fL Mean Corpuscular Hemoglobin 25.1 pg Mean Corpuscular Hemoglobin Concent 32.0 g/dl Platelet Count 323 K/uL Mean Platelet Volume 10.9 fL Neutrophils (%) (Auto) 59.1 % Lymphocytes (%) (Auto) 30.5 % Monocytes (%) (Auto) 8.6 % Eosinophils (%) (Auto) 0.8 % Basophils (%) (Auto) 0.7 % Neutrophils # (Auto) 3.62 K/uL Lymphocytes # (Auto) 1.87 K/uL Monocytes # (Auto) 0.53 K/uL Eosinophils # (Auto) 0.05 K/uL Basophils # (Auto) 0.04 K/uL RDW Standard Deviation 58.6 fL RDW Coefficient of Variation 20.4 % Immature Granulocyte % (Auto) 0.3 % Immature Granulocyte # (Auto) 0.02 K/uL Anisocytosis PRESENT Microcytosis PRESENT Prothrombin Time 11.2 SECONDS Prothromb Time International Ratio 1.0 Sodium Level 137 mmol/L Potassium Level 4.1 mmol/L Chloride Level 107 mmol/L Carbon Dioxide Level 23 mmol/L Anion Gap 7.0 mmol/L Blood Urea Nitrogen 29 mg/dl Creatinine 2.24 mg/dl Est Creatinine Clear Calc Drug Dose 29.5 ml/min Estimated GFR () 25.6 Estimated GFR (Non- 22.1 BUN/Creatinine Ratio 12.9 Random Glucose 118 mg/dl Calcium Level 9.4 mg/dl Total Bilirubin 0.3 mg/dl Direct Bilirubin < 0.1 mg/dl Aspartate Amino Transf (AST/SGOT) 19 U/L Alanine Aminotransferase (ALT/SGPT) 16 U/L Alkaline Phosphatase 76 U/L Total Protein 8.4 gm/dl Albumin 3.5 gm/dl Hepatitis C Antibody Screen NEG Urine Yeast (Auto) PRESENT Bedside Glucose 188 mg/dl Test 07/01/17 23:30 07/02/17 05:47 07/02/17 05:49 Bedside Glucose 114 mg/dl 121 mg/dl White Blood Count 5.32 K/uL Red Blood Count 4.25 M/uL Hemoglobin 10.3 g/dL Hematocrit 33.5 % Mean Corpuscular Volume 78.8 fL Mean Corpuscular Hemoglobin 24.2 pg Mean Corpuscular Hemoglobin Concent 30.7 g/dl Platelet Count 255 K/uL Mean Platelet Volume 10.6 fL Neutrophils (%) (Auto) 52.2 % Lymphocytes (%) (Auto) 34.6 % Monocytes (%) (Auto) 10.5 % Eosinophils (%) (Auto) 1.9 % Basophils (%) (Auto) 0.4 % Neutrophils # (Auto) 2.78 K/uL Lymphocytes # (Auto) 1.84 K/uL Monocytes # (Auto) 0.56 K/uL Eosinophils # (Auto) 0.10 K/uL Basophils # (Auto) 0.02 K/uL RDW Standard Deviation 59.4 fL RDW Coefficient of Variation 20.5 % Immature Granulocyte % (Auto) 0.4 % Immature Granulocyte # (Auto) 0.02 K/uL Hypochromasia PRESENT Triglycerides Level 167 mg/dl Cholesterol Level 144 mg/dl HDL Cholesterol 29 mg/dl LDL Cholesterol, Calculated 82 mg/dl VLDL Cholesterol, Calculated 33 mg/dl Cholesterol/HDL Ratio 5.0 Assessment and Plan 1. ADITI on CKD 2. Cystitis 3. Bladder outlet obstruction. Cates in place. Draining urine well. Need to monitor labs and continue IV abx with plans to deesculate as appropriate. Recommend maintaining catheter and monitoring function. Will follow. Patient will need outpatient workup for recurrent cystitis as well as pneumouria and obstruction. Needs resolution of acute cystitis and aditi. Plan for outpatient workup and close monitoring.
[2017-07-02 10:34] LABS: BUN/CREATININE RATIO 12.5 (10-20); CALCIUM 8.8 mg/dl (8.5-10.1); CREATININE 2.08 mg/dl (0.60-1.20); POTASSIUM 4.1 mmol/L (3.5-5.1)
[2017-07-02] MEDS ORDERED: ACETAMINOPHEN 325 MG TAB PO STA (11:07)
--- NOTE | 2017-07-02 14:14 | Progress Note ---
Subjective Date of Service: Jul 02, 2017. Subjective Pt evaluation today including: conversation w/ patient, physical exam, chart review, lab review, review of studies (CT abd/pelvis), review of inpatient medication list Pain: mild back pain - midline & on right; mild cramps of abdomen PO Intake: normal Voiding: cates catheter in place no events overnight reports having been hospitalized at [facility] in late May/early June for UTI, ARF, hyperkalemia received IV/PO abx creatinine improved by report taken off sotalol (was on such for h/o PAF) seen by nephrology in Late May in [place] - told creatinine had gotten significantly worse seen by cardiology in the last week in [place] - had 24-hour holter monitor "just to be cautious" according to patient main complaint is that of abd cramps & low back pain Problem List Medical Problems: (1) Bilateral hydronephrosis Status: Acute (2) UTI (urinary tract infection) Status: Acute Review of Systems Constitutional: No fever, No chills Respiratory: No shortness of breath, No dyspnea on exertion Cardiac: No chest pain Abdomen: No pain, No nausea, No vomiting Objective Vital Signs Date Time Temp Pulse Resp B/P (MAP) Pulse Ox O2 Delivery O2 Flow Rate FiO2 07/02/17 10:36 Room Air 07/02/17 07:02 36.8 62 17 168/98 (121) 99 Room Air 07/02/17 00:00 Room Air 07/01/17 23:21 36.7 66 16 146/72 (96) 98 Room Air 07/01/17 19:00 Room Air 07/01/17 18:50 36.9 68 18 166/72 (103) 98 Room Air 07/01/17 18:36 66 167/105 98 07/01/17 17:04 71 07/01/17 16:18 98 Room Air 07/01/17 15:26 63 162/78 98 Room Air 07/01/17 14:36 66 07/01/17 14:31 68 18 153/74 96 Room Air Physical Exam General Appearance: no apparent distress, + obese ENT: pharynx normal Neck: no JVD Respiratory/Chest: lungs clear, normal breath sounds, no respiratory distress, no accessory muscle use Cardiovascular: regular rate, rhythm, no gallop, no murmur Abdomen: normal bowel sounds, non tender, soft, no organomegaly Extremities: no pedal edema Neurologic/Psychiatric: alert, oriented x 3 Skin: no rash Comments: musculo - back - tender over l-spine and paraspinal muscles on right with palpation Laboratory Results Last 24 Hours Test 07/01/17 18:05 07/01/17 20:51 07/01/17 23:30 07/02/17 05:47 Urine Color YELLOW Urine Appearance CLOUDY Urine pH 6.0 Urine Specific [place] 1.011 Urine Protein 1+ Urine Glucose (UA) NEG Urine Ketones NEG Urine Occult Blood 2+ Urine Nitrite NEG Urine Bilirubin NEG Urine Urobilinogen NEG Urine Leukocyte Esterase LARGE Urine WBC (Auto) >30 /hpf Urine RBC (Auto) >30 /hpf Urine Hyaline Casts (Auto) 0 /lpf Urine Epithelial Cells (Auto) 5-10 /lpf Urine Bacteria (Auto) NEG Urine Yeast (Auto) PRESENT Bedside Glucose 188 mg/dl 114 mg/dl White Blood Count 5.32 K/uL Red Blood Count 4.25 M/uL Hemoglobin 10.3 g/dL Hematocrit 33.5 % Mean Corpuscular Volume 78.8 fL Mean Corpuscular Hemoglobin 24.2 pg Mean Corpuscular Hemoglobin Concent 30.7 g/dl Platelet Count 255 K/uL Mean Platelet Volume 10.6 fL Neutrophils (%) (Auto) 52.2 % Lymphocytes (%) (Auto) 34.6 % Monocytes (%) (Auto) 10.5 % Eosinophils (%) (Auto) 1.9 % Basophils (%) (Auto) 0.4 % Neutrophils # (Auto) 2.78 K/uL Lymphocytes # (Auto) 1.84 K/uL Monocytes # (Auto) 0.56 K/uL Eosinophils # (Auto) 0.10 K/uL Basophils # (Auto) 0.02 K/uL RDW Standard Deviation 59.4 fL RDW Coefficient of Variation 20.5 % Immature Granulocyte % (Auto) 0.4 % Immature Granulocyte # (Auto) 0.02 K/uL Hypochromasia PRESENT Triglycerides Level 167 mg/dl Cholesterol Level 144 mg/dl HDL Cholesterol 29 mg/dl LDL Cholesterol, Calculated 82 mg/dl VLDL Cholesterol, Calculated 33 mg/dl Cholesterol/HDL Ratio 5.0 Test 07/02/17 05:49 07/02/17 09:55 Bedside Glucose 121 mg/dl Sodium Level 141 mmol/L Potassium Level 4.1 mmol/L Chloride Level 112 mmol/L Carbon Dioxide Level 25 mmol/L Anion Gap 4.0 mmol/L Blood Urea Nitrogen 26 mg/dl Creatinine 2.08 mg/dl Est Creatinine Clear Calc Drug Dose 31.8 ml/min Estimated GFR () 28.0 Estimated GFR (Non- 24.2 BUN/Creatinine Ratio 12.5 Random Glucose 129 mg/dl Calcium Level 8.8 mg/dl Assessment and Plan 67yo female: 1. suspected UTI - continue cefepime. Await culture. Obtain all culture results from [facility] within the last 2-3 months. Has had MDR e. coli multiple times in past - sensitive to cefepime; thus continue such. 2. b/l hydroureteronephrosis - cause? no obvious obstruction on CT (no stones, etc). Urology following - may ultimately need cystoscopy for diagnosis. 3. CKD stage 3 at baseline - obtain records from [place] to determine baseline creatinine but she reports "stage 3" as baseline. Creatinine improved with fluids today. Will lower fluid rate to 75cc/hr. BMP am. 4. interstitial cystitis - chronic. Has seen multiple urological providers at multiple hospitals/clinics over the years. Dr. Yee/Jenae vega are her primary urologists. 5. microcytic anemia - check iron studies in am. 6. h/o PAF - remains in NSR. 7. T2DM - controlled. 8. HTN - controlled. 9. morbid obesity - BMI 43. 10. early cirrhosis - 2nd to LOWE? will inform patient about CT findings. LFTs stable and likely early/mild. 11. DVT proph - heparin TID. await records Continued [facility] stay due to: multiple IV medications needed Discharge planning: home
[2017-07-02 15:32] VITALS: BP 145/70; PULSE 64; TEMP 36.4; O2SAT 99
[2017-07-02] MEDS: INSULIN GLARGINE SOLOSTAR 100 UNITS/ML 3 ML PEN SC SCH (21:00)
[2017-07-02] MEDS ORDERED: INSULIN GLARGINE SOLOSTAR 100 UNITS/ML 3 ML PEN SC SCH (21:00)
[2017-07-02] MEDS: PRAVASTATIN SOD 20 MG TAB PO SCH (21:54)
[2017-07-02 23:07] VITALS: BP 161/74; PULSE 69; TEMP 36.6; O2SAT 99
[2017-07-03] MEDS: ACETAMINOPHEN 325 MG TAB PO PRN (02:37)
[2017-07-03 03:30] VITALS: BP 149/80; PULSE 63; TEMP 36.7; O2SAT 99
[2017-07-03] MEDS ORDERED: KETOROLAC TROMETHAMINE 15 MG/ML VIAL IV. PRN (03:30)
[2017-07-03] MEDS ORDERED: NURSING VERBAL MED ORDER ONE (03:30)
[2017-07-03] MEDS: HEPARIN SOD 5000 UNIT/0.5 ML CARP SQ SCH ×3 (05:48→22:15)
[2017-07-03] MEDS: CIPROFLOXACIN 500 MG TAB PO SCH ×3 (06:34→21:09)
[2017-07-03 06:49] VITALS: BP 171/74; PULSE 63; TEMP 36.7; O2SAT 100
[2017-07-03] MEDS: SODIUM CHLORIDE 0.9% 1000ML 1,000 ML IV SCH (07:43)
[2017-07-03 08:16] LABS: BUN/CREATININE RATIO 14.7 (10-20); CALCIUM 8.4 mg/dl (8.5-10.1); CREATININE 1.94 mg/dl (0.60-1.20); POTASSIUM 4.4 mmol/L (3.5-5.1)
[2017-07-03] MEDS: FERROUS SULFATE 325 MG TAB PO SCH ×2 (08:24→18:31)
[2017-07-03] MEDS: ISOSORBIDE MONONITRATE 60 MG TABCR PO SCH (08:24)
[2017-07-03] MEDS: AMLODIPINE BESYLATE 5 MG TAB PO SCH (08:24)
[2017-07-03] MEDS: LOSARTAN POTASSIUM 50 MG TAB PO SCH (08:24)
[2017-07-03] MEDS: INSULIN ASPART 100 UNITS/ML 3 ML PEN SC SCH ×4 (08:30→21:00)
[2017-07-03] MEDS: FAMOTIDINE 20 MG TAB PO SCH ×2 (08:51→21:09)
[2017-07-03 10:35] LABS: TOTAL IRON BINDING CAPACITY 322 mcg/dl (250-450)
[2017-07-03] MEDS ORDERED: AMLODIPINE BESYLATE 5 MG TAB PO ONE (10:45)
--- NOTE | 2017-07-03 11:14 | Progress Note ---
Subjective Date of Service: Jul 03, 2017. Subjective Pt evaluation today including: conversation w/ patient, physical exam, chart review, lab review, review of studies, conversation w/ hr business partner consultant Pain: Tolerable. Episode at 330 this am. Resolved with medication PO Intake: Tolerating. No issue with intake Voiding: cates catheter in place Long conversation of issues. Patient doing well. multiple questions about workup. Doing well with catheter. No fevers or chills. Ambulating. Tolerating diet and hydration. Cr down to better than recorded baseline. Urine no sediment or clots. Pain in back radiating to groin largely on left. Mild and comes in waves and improves with meds. Problem List Medical Problems: (1) Bilateral hydronephrosis Status: Acute (2) UTI (urinary tract infection) Status: Acute Review of Systems All Other Systems: Reviewed and Negative (All reviewed. Pertinent positives and negatives in HPI. ) Objective Vital Signs Date Time Temp Pulse Resp B/P (MAP) Pulse Ox O2 Delivery O2 Flow Rate FiO2 07/03/17 07:30 Room Air 07/03/17 06:49 36.7 63 16 171/74 (106) 100 Room Air 07/03/17 03:30 36.7 63 16 149/80 (103) 99 Room Air 07/03/17 00:00 Room Air 07/02/17 23:07 36.6 69 16 161/74 (103) 99 Room Air 07/02/17 16:10 Room Air 07/02/17 15:32 36.4 64 16 145/70 (95) 99 Room Air Physical Exam General Appearance: WD/WN, no apparent distress, + obese Eyes: normal inspection ENT: normal ENT inspection, hearing grossly normal Neck: supple, no JVD Respiratory/Chest: no respiratory distress, no accessory muscle use Cardiovascular: regular rate, rhythm Abdomen: non tender (Cates in place. No discomfort. ), soft Extremities: normal range of motion, non-tender Neurologic/Psychiatric: java engineer II-XII nml as tested, no motor/sensory deficits, alert, normal mood/affect, oriented x 3 Skin: normal color, warm/dry, no rash Lymphatic: no adenopathy Laboratory Results Last 24 Hours Test 07/02/17 11:59 07/02/17 17:32 07/02/17 20:52 07/03/17 06:37 Bedside Glucose 155 mg/dl 90 mg/dl 89 mg/dl Sodium Level 141 mmol/L Potassium Level 4.4 mmol/L Chloride Level 110 mmol/L Carbon Dioxide Level 24 mmol/L Anion Gap 7.0 mmol/L Blood Urea Nitrogen 29 mg/dl Creatinine 1.94 mg/dl Est Creatinine Clear Calc Drug Dose 34.1 ml/min Estimated GFR () 30.5 Estimated GFR (Non- 26.3 BUN/Creatinine Ratio 14.7 Random Glucose 106 mg/dl Calcium Level 8.4 mg/dl Iron Level mcg/dl Total Iron Binding Capacity mcg/dl Transferrin 219 mg/dl Transferrin % Saturation % Ferritin 85.0 ng/ml Test 07/03/17 07:54 07/03/17 08:15 07/03/17 09:45 Bedside Glucose 97 mg/dl Transferrin % Saturation % 13 % Iron Level 43 mcg/dl Total Iron Binding Capacity 322 mcg/dl Transferrin 234 mg/dl Assessment and Plan 1. DAITI on CKD 2. Cystitis 3. Bladder outlet obstruction. Cates in place. Draining urine well. Need to monitor labs and continue IV abx with plans to de-esculate as appropriate. Recommend maintaining catheter and monitoring function. Will follow. Patient will need outpatient workup for recurrent cystitis as well as pneumouria and obstruction. Needs resolution of acute cystitis and aditi. Plan for outpatient workup and close monitoring. 07/03/2017: Long discussion with patient about issues. Discussed prolonged course of antibiotics with oral quinolone and drainage with cates catheter to resolve acute cystitis. Patient improved greatly with cates drainage. Appears to have some sort of obstructive process. No obvious blockage on vaginal exam, question whether acute cystitis caused retention/reflux. Patient has chronic IC with symptoms and ulcers. Likely having acute cystitis on top of flare of IC. As mentioned above, will need to have further workup for complicated UTI's and recurrent infections. Need approx 14 days of abx therapy and cates drainage during that time. Patient has lab work for kidney's planned on tuesday and recommend keeping that plan. Patient has Cystoscopy and retrograde planned on 07/12. Plan to keep this appointment with plans for abx up to this point to relieve acute severe cystitis. Discussed need for other imaging, possibly oral contrasted CT scan, however, this too will need to wait until resolution of Acute Cystitis. Will discuss this case with patient's primary urologist and plan accordingly. At this point, will treat bladder outlet obstruction and treat complicated UTI. Okay to discharge with catheter/catheter care instructions and oral antibiotics. Patient is to contact our office Tuesday afternoon to determine need for preoperative lab work. Continued [facility] stay due to: multiple IV medications needed Discharge planning: home
--- NOTE | 2017-07-03 13:44 | DIAGNOSTIC IMAGING REPORT ---
L-SPINE MIN 4 VIEWS ROUTINE CLINICAL HISTORY: Back pain COMPARISON STUDY: No previous studies for comparison. FINDINGS: There is a grade 1 spondylolisthesis of L4 on L5. There are mild multilevel degenerative changes. No fractures or traumatic subluxations are visualized. There is a right upper quadrant calcification consistent with a gallstone IMPRESSION: 1. Cholelithiasis 2. No evidence of pathologic bowel dilatation 3. Mild degenerative changes. Grade 1 spondylolisthesis of L4 on L5. No acute fractures Electronically signed by: Ye Clay M.D. 07/03/2017 1:42 PM Dictated Date/Time: 07/03/2017 1:41 PM
[2017-07-03 15:46] VITALS: BP 164/82; PULSE 68; TEMP 36.5; O2SAT 99
--- NOTE | 2017-07-03 17:56 | DIAGNOSTIC IMAGING REPORT ---
CT SCAN OF THE ABDOMEN AND PELVIS WITHOUT CONTRAST CLINICAL HISTORY: Recurrent urinary tract infections. Air in the bladder. Possible colovesical fistula. COMPARISON STUDY: 07/01/2017 TECHNIQUE: CT scan of the abdomen and pelvis was performed from the lung bases to the proximal femurs. Images are reviewed in the axial, sagittal, and coronal planes. IV contrast was not administered for this examination. A dose lowering technique was utilized adhering to the principles of ALARA. CT DOSE: 1546.11 mGy.cm FINDINGS: Lower chest: The heart is normal in size and configuration, without pericardial effusion. The lung bases and pleural spaces are clear. Liver: The unenhanced liver is normal in size, contour, and attenuation. There is no intrahepatic biliary ductal dilatation. Gallbladder: Cholelithiasis Spleen: Normal in size and attenuation. Pancreas: Unremarkable. Adrenal glands: Unremarkable. Kidneys: No renal calculi are visualized. There is moderate right-sided hydronephrosis and hydroureter. There is decreasing dilatation of the left renal collecting system. No ureteral calculi are visualized. There is indwelling Degroot catheter. The bladder is decompressed. Bowel: There are no transition zones indicate bowel obstruction. There is colonic diverticulosis. There is no acute diverticulitis. There are no findings to indicate acute appendicitis. Peritoneum: There is no intraperitoneal free air or abdominal ascites. Vasculature: The abdominal aorta is normal in course and caliber. Adenopathy: None. Pelvic viscera: The uterus appears surgically absent. There is indwelling Degroot catheter. There is mild perivesical infiltration. Skeletal structures: No destructive osseous lesions are seen. IMPRESSION: 1. Persistent moderate right-sided hydronephrosis and hydroureter. Decreasing dilatation of the left renal collecting system. 2. Cholelithiasis 3. No evidence of bowel obstruction. No evidence of free air 4. Diverticulosis. No evidence of acute diverticulitis 5. Indwelling Degroot catheter. Moderate perivesical infiltration. Electronically signed by: Ye Clay M.D. 07/03/2017 5:55 PM Dictated Date/Time: 07/03/2017 5:47 PM
[2017-07-03 19:00] VITALS: BP 160/79; PULSE 68; TEMP 36.5; O2SAT 98
[2017-07-03] MEDS ORDERED: HYDROCODONE/ACETAMOPHEN 5/325MG TAB PO PRN (19:15)
--- NOTE | 2017-07-03 19:55 | Progress Note ---
Subjective Date of Service: Jul 03, 2017. Subjective Pt evaluation today including: conversation w/ patient, conversation w/ family (daughter by phone), physical exam, chart review, lab review, review of studies (CT abd/pelvis, l-spine x-rays), conversation w/ performance consultant (urology), review of inpatient medication list Pain: mild, left paraspinal areas; LLQ - occasional PO Intake: normal Voiding: cates catheter in place mild pain issues overnight but during my visit she had no complaints feels good normal appetite ambulating NUMEROUS questions about plan of care got very teary-eyed talking about chronic bladder issues daughter from [place] called several times today looking for updates Problem List Medical Problems: (1) Bilateral hydronephrosis Status: Acute (2) UTI (urinary tract infection) Status: Acute Review of Systems Constitutional: No fever, No chills Respiratory: No shortness of breath Cardiac: No chest pain Abdomen: No nausea, No vomiting Objective Vital Signs Date Time Temp Pulse Resp B/P (MAP) Pulse Ox O2 Delivery O2 Flow Rate FiO2 07/03/17 15:46 36.5 68 18 164/82 (109) 99 Room Air 07/03/17 07:30 Room Air 07/03/17 06:49 36.7 63 16 171/74 (106) 100 Room Air 07/03/17 03:30 36.7 63 16 149/80 (103) 99 Room Air 07/03/17 00:00 Room Air 07/02/17 23:07 36.6 69 16 161/74 (103) 99 Room Air Physical Exam General Appearance: no apparent distress, + obese ENT: pharynx normal Neck: no JVD Respiratory/Chest: lungs clear, no respiratory distress, no accessory muscle use Cardiovascular: regular rate, rhythm, no gallop, no murmur Abdomen: normal bowel sounds, non tender, soft, no organomegaly Extremities: no pedal edema Neurologic/Psychiatric: alert, oriented x 3 Skin: no rash Comments: lumbar spine - again paraspinal tenderness, mainly on right, with palpation Laboratory Results Last 24 Hours Test 07/02/17 20:52 07/03/17 06:37 07/03/17 07:54 07/03/17 08:15 Bedside Glucose 89 mg/dl 97 mg/dl Sodium Level 141 mmol/L Potassium Level 4.4 mmol/L Chloride Level 110 mmol/L Carbon Dioxide Level 24 mmol/L Anion Gap 7.0 mmol/L Blood Urea Nitrogen 29 mg/dl Creatinine 1.94 mg/dl Est Creatinine Clear Calc Drug Dose 34.1 ml/min Estimated GFR () 30.5 Estimated GFR (Non- 26.3 BUN/Creatinine Ratio 14.7 Random Glucose 106 mg/dl Calcium Level 8.4 mg/dl Iron Level mcg/dl Total Iron Binding Capacity mcg/dl Transferrin 219 mg/dl Transferrin % Saturation % % Ferritin 85.0 ng/ml Test 07/03/17 09:45 07/03/17 12:09 07/03/17 17:02 Iron Level 43 mcg/dl Total Iron Binding Capacity 322 mcg/dl Transferrin 234 mg/dl Transferrin % Saturation 13 % Bedside Glucose 96 mg/dl 108 mg/dl Assessment and Plan 67yo female: 1. suspected UTI - culture from 06/29 with contaminants, and culture from negative. As such there is still strong suspicion of UTI given her CT findings. Await records from [facility] to review all culture results from the last 2- 3 months. Has had MDR e. coli multiple times in past - sensitive to cipro in May. Have changed to such. Will repeat urine culture one more time. 2. b/l hydroureteronephrosis - cause? no obvious obstruction on CT (no stones, etc). Urology following - will need cystoscopy for diagnosis. Repeat CT today did NOT show evidence of colovesicular fistula and the left sided collecting system was improved from prior imaging. Continue cates catheter now and at discharge. 3. CKD stage 3 at baseline - obtain records from [place] to determine baseline creatinine but she reports "stage 3" as baseline. Creatinine continues to improve but to avoid volume overload will d/c IVF today. 4. interstitial cystitis - chronic. Has seen multiple urological providers at multiple hospitals/clinics over the years. Dr. Yee/Jenae locally are her primary urologists. 5. microcytic anemia - iron studies wnl. If chronic she could have thalaseemia. Check CBC in am for stability. 6. h/o PAF - remains in NSR. 7. T2DM - controlled. 8. HTN - uncontrolled. Increase amlodipine to 10mg daily. 9. morbid obesity - BMI 43. 10. early cirrhosis - 2nd to LOWE? will inform patient about CT findings. LFTs stable and likely early/mild. 11. DVT proph - heparin TID. await records daughter - Rubi - [phone] - extensively updated by phone today time today 40 minutes anticipate d/c in am Discharge planning: home
[2017-07-03] MEDS: PRAVASTATIN SOD 20 MG TAB PO SCH (21:11)
[2017-07-03] MEDS: INSULIN GLARGINE SOLOSTAR 100 UNITS/ML 3 ML PEN SC SCH (21:14)
[2017-07-03 22:50] VITALS: BP 166/84; PULSE 71; TEMP 36.6; O2SAT 99
[2017-07-04] MEDS: HEPARIN SOD 5000 UNIT/0.5 ML CARP SQ SCH ×2 (05:54→13:44)
[2017-07-04 07:16] VITALS: BP 149/84; PULSE 64; TEMP 36.9; O2SAT 97
[2017-07-04 07:38] LABS: BASO % 0.6 %; BASO ABS # 0.03 K/uL (0-0.2); EOS % 2.4 %; HEMATOCRIT 34.7 % (37-47); IG% 0.2 %; LYMPH % 29.7 %; MEAN CELL VOLUME 78.9 fL (80-100); MEAN CORPUSCULAR HEMOGLOBIN 24.8 pg (25-34); MEAN CORPUSCULAR HGB CONC 31.4 g/dl (32-36); MEAN PLATELET VOLUME 11.1 fL (7.4-10.4); MONO % 6.9 %; NEUT % 60.2 %; PLATELET COUNT 227 K/uL (130-400); WHITE BLOOD COUNT 5.38 K/uL (4.8-10.8)
[2017-07-04 08:00] LABS: ANISOCYTOSIS PRESENT; COMPLETE YES; HYPERSEGMENTED POLYS 1+; HYPOCHROMIA PRESENT; MICROCYTOSIS PRESENT; TOXIC GRANULATION 1+; VACUOLIZATION 1+
[2017-07-04 08:04] LABS: CALCIUM 8.9 mg/dl (8.5-10.1); CREATININE 1.98 mg/dl (0.60-1.20); POTASSIUM 4.5 mmol/L (3.5-5.1)
[2017-07-04] MEDS: CIPROFLOXACIN 500 MG TAB PO SCH (08:36)
[2017-07-04] MEDS: FERROUS SULFATE 325 MG TAB PO SCH (08:36)
[2017-07-04] MEDS: LOSARTAN POTASSIUM 50 MG TAB PO SCH (08:37)
[2017-07-04] MEDS: ISOSORBIDE MONONITRATE 60 MG TABCR PO SCH (08:37)
[2017-07-04] MEDS: INSULIN ASPART 100 UNITS/ML 3 ML PEN SC SCH ×2 (08:42→13:14)
[2017-07-04] MEDS ORDERED: AMLODIPINE BESYLATE 5 MG TAB PO SCH (09:00)
[2017-07-04] MEDS: FAMOTIDINE 20 MG TAB PO SCH (09:21)
[2017-07-04] MEDS ORDERED: NRV/10 PO (11:08)
[2017-07-04] MEDS ORDERED: HYDR-5688 PO (11:08)
[2017-07-04] MEDS ORDERED: CPR500 PO (11:08)
--- NOTE | 2017-07-04 11:26 | Discharge Instructions ---
Discharge Instructions Date of Service Jul 04, 2017. Admission Reason for Admission: Bilateral Hydronephrosis Discharge Discharge Diagnosis / Problem: suspected UTI, bilateral hydronephrosis ( swollen ureters) Discharge Goals Goal(s): Learn about illness, Diagnostic testing, Therapeutic intervention Activity Recommendations Activity Limitations: resume your previous activity . Instructions / Follow-Up Instructions / Follow-Up From Dr. Mccullough - 1. possible/suspected UTI (urinary tract infection)- * urine cultures from 06/29, 07/01, and 07/03 were all negative * this means a specific bacteria was not isolated from the urine * this does not fully rule out urinary tract infection, however * because of concern of possible UTI we are discharging you on cipro 500mg twice daily for 14 days; start this TONIGHT upon return home 2. cates catheter - this will remain in place at least until the time of your cystoscopy next 07/12/17. Please empty the bag as needed. If you experience any troubles with the cates your primary care doctor or the urology team can assist you with this. 3. Keep your appointment for 07/12/17 for the cystoscopy at [facility]. 4. hypertension / high blood pressure - note that your amlodipine dose has been increased from 5 to 10mg once daily. new prescription provided. 5. back pain - some of your back pain may be due in part to arthritis of the lumbar spine. You can take the hydrocodone pain pill every 6 hours as needed for pain. Please do NOT drive if you are using the pain pills, do not take over-the- counter tylenol with the pain pills, and do not drink alcohol with pain pills. Know the pain pills can make you sleepy and cause constipation. 6. insomnia / sleep difficulties - please discuss your sleep problem with your family doctor. This may be contributing heavily to your chronic fatigue. 7. Do NOT take any [id number] aspirin, motrin, ibuprofen, alleve, naprosyn (these are anti-inflammatories) due to your kidney troubles as well as your upcoming cystoscopy. 8. Return to [facility] if - * you experience fever over 100.5 degrees * worsening back pain or abdominal pain * diarrhea * troubles with your cates catheter * any other concerns 9. Follow-up appointments - * 07/12/17 - cystoscopy at [facility] with the [facility] Urology team - time to be determined * [facility] nephrology as scheduled * [facility] as scheduled Current Hospital Diet Patient's current hospital diet: AHA Diet (Heart Healthy), Diabetes Type 2 Diet Discharge Diet Recommended Diet: AHA Diet (Heart Healthy), Diabetes Type 2 Diet Procedures Procedures Performed: 1. CAT scan of abdomen & pelvis (two times) - both with hydronephrosis (swollen kidneys and swollen ureters) along with inflammation of bladder. The second CAT scan showed that the swollen kidney and ureter on the left was improving. 2. x-rays of lumbar spine with degeneration/arthritis. Pending Studies Studies pending at discharge: no Laboratory Results Lipid Panel Test 07/02/17 05:47 Range/Units Triglycerides Level 167 H 0-150 mg/dl Cholesterol Level 144 0-200 mg/dl HDL Cholesterol 29 mg/dl Cholesterol/HDL Ratio 5.0 LDL Cholesterol, Calculated 82 mg/dl Medical Emergencies . Who to Call and When: Medical Emergencies: If at any time you feel your situation is an emergency, please call 911 immediately. . Non-Emergent Contact Non-Emergency issues call your: Primary Care Provider, Urologist Call Non-Emergent contact if: temperature is above 100.5, your pain is not controlled, your pain is worsening, your pain is unusual for you, your pain is concerning you, you have any medication questions . . "Provider Documentation" section prepared by Lucas Mccullough. . VTE Core Measure Inpt VTE Proph given/why not?: Unfractionated heparin SQ, T.E.D. Stockings, SCD 's
--- NOTE | 2017-07-04 12:32 | Progress Note ---
Subjective Date of Service: Jul 04, 2017. Subjective Pt evaluation today including: conversation w/ patient, physical exam, chart review, lab review, review of studies Pain: Tolerable PO Intake: Good Patient doing well. Tolerating catheter. Labs improved to better than baseline. Tolerating antibiotics. Imaging yesterday for abd. No change from previous study with continued hydronephrosis and bladder thickening and inflammation. Unable to determine source. Problem List Medical Problems: (1) Bilateral hydronephrosis Status: Acute (2) UTI (urinary tract infection) Status: Acute Review of Systems All Other Systems: Reviewed and Negative (All reviewed see HPI for pertinent positives and negatives. ) Objective Vital Signs Date Time Temp Pulse Resp B/P (MAP) Pulse Ox O2 Delivery O2 Flow Rate FiO2 07/04/17 07:55 Room Air 07/04/17 07:16 36.9 64 20 149/84 (105) 97 Room Air 07/04/17 00:15 Room Air 07/03/17 22:50 36.6 71 18 166/84 (111) 99 Room Air 07/03/17 19:00 36.5 68 17 160/79 (106) 98 Room Air 07/03/17 15:46 36.5 68 18 164/82 (109) 99 Room Air Physical Exam General Appearance: WD/WN, no apparent distress, + obese Eyes: normal inspection ENT: normal ENT inspection Neck: supple, no JVD Respiratory/Chest: no respiratory distress, no accessory muscle use Cardiovascular: regular rate, rhythm Abdomen: non tender, soft Extremities: normal range of motion, non-tender Neurologic/Psychiatric: 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, no motor/sensory deficits, alert, normal mood/affect, oriented x 3 Skin: normal color, warm/dry, no rash Lymphatic: no adenopathy Laboratory Results Last 24 Hours Test 07/03/17 17:02 07/03/17 20:41 07/04/17 07:19 07/04/17 07:52 Bedside Glucose 108 mg/dl 123 mg/dl 116 mg/dl White Blood Count 5.38 K/uL Red Blood Count 4.40 M/uL Hemoglobin 10.9 g/dL Hematocrit 34.7 % Mean Corpuscular Volume 78.9 fL Mean Corpuscular Hemoglobin 24.8 pg Mean Corpuscular Hemoglobin Concent 31.4 g/dl Platelet Count 227 K/uL Mean Platelet Volume 11.1 fL Neutrophils (%) (Auto) 60.2 % Lymphocytes (%) (Auto) 29.7 % Monocytes (%) (Auto) 6.9 % Eosinophils (%) (Auto) 2.4 % Basophils (%) (Auto) 0.6 % Neutrophils # (Auto) 3.24 K/uL Lymphocytes # (Auto) 1.60 K/uL Monocytes # (Auto) 0.37 K/uL Eosinophils # (Auto) 0.13 K/uL Basophils # (Auto) 0.03 K/uL RDW Standard Deviation 59.3 fL RDW Coefficient of Variation 20.4 % Immature Granulocyte % (Auto) 0.2 % Immature Granulocyte # (Auto) 0.01 K/uL Hypersegmented Polys 1+ Toxic Granulation 1+ Toxic Vacuolation 1+ Hypochromasia PRESENT Anisocytosis PRESENT Microcytosis PRESENT Sodium Level 140 mmol/L Potassium Level 4.5 mmol/L Chloride Level 112 mmol/L Carbon Dioxide Level 21 mmol/L Anion Gap 8.0 mmol/L Blood Urea Nitrogen 26 mg/dl Creatinine 1.98 mg/dl Est Creatinine Clear Calc Drug Dose 33.4 ml/min Estimated GFR () 29.8 Estimated GFR (Non- 25.7 BUN/Creatinine Ratio 13.0 Random Glucose 115 mg/dl Calcium Level 8.9 mg/dl Assessment and Plan 1. ADITI on CKD 2. Cystitis 3. Bladder outlet obstruction. Cates in place. Draining urine well. Need to monitor labs and continue IV abx with plans to de-esculate as appropriate. Recommend maintaining catheter and monitoring function. Will follow. Patient will need outpatient workup for recurrent cystitis as well as pneumouria and obstruction. Needs resolution of acute cystitis and aditi. Plan for outpatient workup and close monitoring. 07/03/2017: Long discussion with patient about issues. Discussed prolonged course of antibiotics with oral quinolone and drainage with cates catheter to resolve acute cystitis. Patient improved greatly with cates drainage. Appears to have some sort of obstructive process. No obvious blockage on vaginal exam, question whether acute cystitis caused retention/reflux. Patient has chronic IC with symptoms and ulcers. Likely having acute cystitis on top of flare of IC. As mentioned above, will need to have further workup for complicated UTI's and recurrent infections. Need approx 14 days of abx therapy and cates drainage during that time. Patient has lab work for kidney's planned on tuesday and recommend keeping that plan. Patient has Cystoscopy and retrograde planned on 07/12. Plan to keep this appointment with plans for abx up to this point to relieve acute severe cystitis. Discussed need for other imaging, possibly oral contrasted CT scan, however, this too will need to wait until resolution of Acute Cystitis. Will discuss this case with patient's primary urologist and plan accordingly. At this point, will treat bladder outlet obstruction and treat complicated UTI. Okay to discharge with catheter/catheter care instructions and oral antibiotics. Patient is to contact our office Tuesday afternoon to determine need for preoperative lab work. 07/04/2017 Reviewed and interpreted results of CT scan from yesterday. Continued inflammation and hydro and unable to visualize any fistula or other source of chronic cystitis. Inflammation likely limits ability to visualized. Discussed with patient the need for prolonged antibiotics and maximum drainage. Will likely need workup after resolution of acute symptomatic event. Continue supportive care. Likely outpatient workup in 2-3 weeks after cessation of symptoms and resolution of cystitis. Discharge planning: home
[2017-07-04 13:18] VITALS: BP 149/84; PULSE 64; TEMP 36.9; O2SAT 97
--- NOTE | 2017-07-04 16:38 | Discharge Summary ---
Discharge Summary Date of Service Jul 04, 2017. Discharge Summary Admission Date: Jul 01, 2017 at 16:48 Discharge Date: Jul 04, 2017 Discharge Disposition: Home Principal Diagnosis: suspected UTI Problems/Secondary Diagnoses: 1. CKD stage 3 with mild superimposed acute kidney injury - creatinine day of discharge 1.9 2. T2DM 3. HTN 4. morbid obesity with BMI of 43 5. recurrent UTIs many of which have been MDR e. coli, most recent 06/23/17 6. history of urinary incontinence 7. interstitial cystitis 8. question of history of rheumatoid arthritis 9. 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 fatty liver with CT of the abdomen this admission with possible early cirrhosis 12. mild microcytic anemia 13. recent hospitalization at [facility] ([place], [place]) for acute renal failure, hyperkalemia, and e. coli UTI 14. b/l hydroureteronephrosis 15. hyperlipidemia Immunizations: Have You Had Influenza Vaccine: Yes Influenza Vaccine Date: Jul 27, 2006 History of Tetanus Vaccine?: Unknown History of Pneumococcal: No History of Hepatitis B Vaccine: No Procedures: 1. CT abd/pelvis - noncontrast: IMPRESSION: 1. Although decompressed, the bladder wall is markedly thickened and there is extensive pericystic inflammation. Findings are highly concerning for cystitis. Correlation with clinical findings and urinalysis will be required. 2. There is a small focus of gas within the bladder lumen. This could be related to infection or recent instrumentation. Again, correlation with clinical findings and urinalysis will be required. 3. There is moderate to severe bilateral hydroureteronephrosis, with the ureters dilated to the level of the abnormal bladder. This may represent obstruction secondary to bladder wall edema. Follow-up with urology is recommended. 4. Bilateral perinephric stranding is noted. Ascending infection is not excluded. 5. The liver demonstrates early changes of cirrhosis. 6. Cholelithiasis. 7. The coronary arteries and abdominal aorta are densely calcified. 8. Moderate to advanced diverticulosis of left colon without CT evidence of acute diverticulitis. 2. CT abd/pelvis, study #2 (with oral contrast to r/o colovesicular fistula): IMPRESSION: 1. Persistent moderate right-sided hydronephrosis and hydroureter. Decreasing dilatation of the left renal collecting system. 2. Cholelithiasis 3. No evidence of bowel obstruction. No evidence of free air 4. Diverticulosis. No evidence of acute diverticulitis 5. Indwelling Cates catheter. Moderate perivesical infiltration. 3. lumbar spine xrays: IMPRESSION: 1. Cholelithiasis 2. No evidence of pathologic bowel dilatation 3. Mild degenerative changes. Grade 1 spondylolisthesis of L4 on L5. No acute fractures. Consultations: urology - Peter Bennett, DO Medication Reconciliation New Medications: Ciprofloxacin (Ciprofloxacin HCl) 500 Mg Tab 500 MG PO BID for 14 Days, #28 TAB 0 Refills Hydrocodone/Acetaminophen 5MG/325MG ([place] 5MG/325MG) Tab 1 TAB PO Q6H PRN for Pain, #20 TAB 0 Refills PRN PAIN Changed Medications: Amlodipine Besylate (Amlodipine Besylate) 10 Mg Tab 10 MG PO DAILY, #30 TABS 5 Refills (Changed from: Amlodipine Besylate 5 Mg Tab 5 Mg PO QAM) Continued Medications: Famotidine (Famotidine) 20 Mg Tab 20 MG PO BID Ferrous Sulfate (Kp Ferrous Sulfate) 325 Mg Tab 325 MG PO BID for 30 Days, #60 TAB 3 Refills Insulin Aspart (Novolog Flexpen) 100 Units/Ml Inj 4 UNITS SQ TIDM Insulin Glargine (Lantus Solostar) 100 Unit/Ml Inj 10 UNITS SC HS, PEN Isosorbide Mononitrate (Isosorbide Mononitrate ER) 60 Mg Tabcr 60 MG PO QAM Losartan Potassium (Losartan Potassium) 50 Mg Tab 50 MG PO DAILY Pravastatin (Pravachol ) 20 Mg Tab 20 MG PO HS, TAB Discharge Exam Physical Exam: General Appearance: no apparent distress, + obese ENT: pharynx normal Neck: no JVD Respiratory/Chest: lungs clear, no respiratory distress, no accessory muscle use Cardiovascular: regular rate, rhythm, no gallop, no murmur, normal peripheral pulses Abdomen / GI: normal bowel sounds, non tender, soft, no organomegaly Extremities: + pedal edema (trace b/l ) Neurologic/Psychiatric: alert, oriented x 3 Skin: no rash Hospital Course HISTORY OF PRESENT ILLNESS: This is a 67yo female with history of T2DM, paroxysmal a. fib, HTN, morbid obesity, recurrent UTIs, interstitial cystitis, gross hematuria, chronic urinary incontinence, bladder lesions and arthritis who presented with abdominal cramping and low back pain. Pt was recently see by Dr. Emanuel in the urology clinic yesterday; at that time it was decided to plan for cystoscopy , possible ureteroscopy, and possible stenting due to findings on imaging showing bilateral hydroureteronephrosis. The patient had a recent renal US showing these findings. The patient was recently hospitalized at the end of May for urosepsis and was treated for e.coli UTI at [facility]. Other medical history includes botox injections to the bladder, had nerve stimulation for bladder, and transvaginal bladder physical therapy. She reports multiple antibiotics have not worked to treat her UTIs, and that with the developing back pain today she was more concerned her current antibiotic wasn't working. UTIs have been present for >1year, and follows with nephrology in [place] as well. She recently had a urine culture done on 06/23/17 at [facility] which again grew out e.coli so has been taking an antibiotic x 8 days now. Pt has been eating and drinking well, and has adequate urine output. Pt admits to incontinence and therefore wears a pad. She denies any fever, chills or sweats , hematuria, dysuria. HOSPITAL COURSE: 1. suspected UTI - the full report of the urine culture done at [facility] on 06/23/17 was obtained and indeed showed e. coli. The final susceptibility report showed SENSITIVITY to cipro. Outpatient urine culture at [facility] from 06/29/17 and 2 additional CATH specimen urine cultures dated 07/01/17 and 07/03/17 were ALL NEGATIVE. Despite the negative urine cultures on the above 3 dates it was felt that the patient still likely had some element of UTI given her CT findings as noted above. Thus, at time of discharge, the patient will complete a 2-week course of oral cipro 500mg twice daily. Given the ongoing negative urine cultures (3 in the last 6 days), lack of fever, normal WBC count, good appetite, etc it was felt that the cipro should suffice. 2. b/l hydroureteronephrosis - the patient was seen by Dr. Peter Bennett of [facility] urology during her stay. The exact cause of the bilateral hydroureteronephrosis was uncertain given the lack of obvious obstructing process on imaging (no stones, etc). A repeat CT of the abd/pelvis with oral contrast did NOT show evidence of colovesicular fistula and the left sided collecting system was mildly improved from prior imaging. [id number], the patient will need additional testing in the near future. An outpatient cystoscopy is planned for 07/12/17, at [facility]. During her stay a cates catheter was placed and, following such, many of her symptoms (back pain, abdominal discomfort, etc) improved. She was given cates catheter instruction and discharged to home with the catheter. This will likely be removed in the next 1-2 weeks following discharge by the urology team. 3. CKD stage 3 with mild acute kidney injury - records from [facility] were obtained and it appears that her baseline creatinine in early June 2017 was 2.2. Following fluids and cates placement her creatinine improved modestly to 1.9 at [facility]. It remains to be seen what her new baseline creatinine will be. She was advised to remain off ALL NSAIDs at this time. The patient recently established care with a director of scientific research in [place]. However, to improve coordination of care, she was given an appointment to see [facility] Nephrology in the near future thereby allowing all of her urological/ nephrology care to be in [place]. Records obtained from [facility] showed a negative work-up for her CKD including normal FLAVIA, normal complements, normal SPEP/UPEP, etc. 4. interstitial cystitis - chronic diagnosis; followed by Dr. Indra Emanuel for such. 5. microcytic anemia - iron studies were largely within normal limits. She could have an element of thalaseemia. Discharge hemoglobin was 10.9. No hematuria or GI bleeding was seen at any time. 6. h/o PAF - remained in [facility] during her stay. Follows with cardiology in [place] for this problem. 7. HTN - mildly uncontrolled through her stay and thus her amlodipine was increased to 10mg daily. 8. early cirrhosis - CT of the abdomen appeared to show possible early changes of cirrhosis. LFTs were normal while here. She will need follow-up for this in the future. Certainly, given her morbid obesity, she is at risk of LOWE cirrhosis. 9. back pain - some of the patient's back pain could be urological in origin but she also has DJD of the lumbar spine. She will take norco on a prn basis for this. See lumbar spine x-ray report above. 10. chronic insomnia - she was asked to follow-up with her PCP for ongoing management of this issue. Total Time Spent: Greater than 30 minutes This includes examination of the patient, discharge planning, medication reconciliation, and communication with other providers. Discharge Instructions Please refer to the electronic Patient Visit Report (Discharge Instructions) for additional information. Follow-Up 1. [facility] - Johnny CACERES - TuesdayJuly 08 at 11:30 am 2. [facility] Neph[facility] Office - Dr. Lee Veloz - TuesdayJuly 15 at 1:30 pm 3. [facility] Urology - 07/12/17 - cystoscopy at [facility] Additional Copies To Johnny Murguia.; Peter Bennett D.OCandis; Lee Veloz D.O.; Indra Emanuel M.D.
[2017-07-06] MEDS ORDERED: HYDR-5688 PO (10:38)
[2017-07-06] MEDS ORDERED: AMLO-114 PO (10:38)
== END 2017-07-04 14:30 | disposition home or self-care (01) | DRG 690 ==
LOC: C.EDB 12:53 → C.MSW 16:48 → ENRESERV 17:10
PROVIDERS: ADMIT Internal Medicine; ATTEND Internal Medicine
PROC: 0T9B70Z Drainage of Bladder with Drainage Device, Via Natural or Artificial Opening (ICD-10-PCS; principal; 2017-07-01)
DX: N30.01 Acute cystitis with hematuria (principal); N17.9 Acute kidney failure, unspecified; N13.6 Pyonephrosis; Z68.41 Body mass index [BMI] 40.0-44.9, adult; N30.11 Interstitial cystitis (chronic) with hematuria; N32.0 Bladder-neck obstruction; B96.20 Unspecified Escherichia coli [E. coli] as the cause of diseases classified elsewhere; R32 Unspecified urinary incontinence; I12.9 Hypertensive chronic kidney disease with stage 1 through stage 4 chronic kidney disease, or unspecified chronic kidney disease; E11.22 Type 2 diabetes mellitus with diabetic chronic kidney disease; N18.3 Chronic kidney disease, stage 3 (moderate); M54.9 Dorsalgia, unspecified; M06.9 Rheumatoid arthritis, unspecified; I48.0 Paroxysmal atrial fibrillation; K76.0 Fatty (change of) liver, not elsewhere classified; K74.60 Unspecified cirrhosis of liver; E78.5 Hyperlipidemia, unspecified; D50.9 Iron deficiency anemia, unspecified; M19.90 Unspecified osteoarthritis, unspecified site; F51.04 Psychophysiologic insomnia; K57.90 Diverticulosis of intestine, part unspecified, without perforation or abscess without bleeding; E66.01 Morbid (severe) obesity due to excess calories; Z79.4 Long term (current) use of insulin; Z79.899 Other long term (current) drug therapy

== ENCOUNTER 2017-07-12 09:00 | Day surgery (SDC) | payer OTHER ==
[2017-07-06 10:39] VITALS: BMI 43.0
--- NOTE | 2017-07-06 11:11 | PAT Medication Instructions ---
Service Date Jul 06, 2017. Current Home Medication List Amlodipine (Norvasc), 10 MG PO QAM Ciprofloxacin (Ciprofloxacin HCl), 500 MG PO BID Famotidine (Famotidine), 20 MG PO BID Ferrous Sulfate (Kp Ferrous Sulfate), 325 MG PO BID Hydrocodone/Acetaminophen 5MG/325MG ([employer] 5MG/325MG), 1 TAB PO Q6 PRN for Pain Insulin Aspart (Novolog Flexpen), 4 UNITS SQ TIDM Insulin Glargine (Lantus Solostar), 10 UNITS SC HS Isosorbide Mononitrate (Isosorbide Mononitrate ER), 60 MG PO QAM Losartan Potassium (Losartan Potassium), 50 MG PO HS Pravastatin (Pravachol ), 20 MG PO HS Medication Instructions For Your Scheduled Surgery - Hold the following medications 24 hours prior to surgery: Losartan Potassium (Losartan Potassium), 50 MG PO HS - Hold the following medications the morning of surgery: Insulin Aspart (Novolog Flexpen), 4 UNITS SQ TIDM Ferrous Sulfate (Kp Ferrous Sulfate), 325 MG PO BID - Take the following medications the morning of surgery with a sip of water OTHERWISE NOTHING TO EAT OR DRINK AFTER MIDNIGHT: Amlodipine (Norvasc), 10 MG PO QAM Hydrocodone/Acetaminophen 5MG/325MG ([employer] 5MG/325MG), 1 TAB PO Q6 PRN for Pain (okay to take if needed up to 4 hours prior to surgery) Famotidine (Famotidine), 20 MG PO BID Ciprofloxacin (Ciprofloxacin HCl), 500 MG PO BID Isosorbide Mononitrate (Isosorbide Mononitrate ER), 60 MG PO QAM - Take the following medications as scheduled the night before surgery: Insulin Glargine (Lantus Solostar), 10 UNITS SC HS Insulin Aspart (Novolog Flexpen), 4 UNITS SQ TIDM Pravastatin (Pravachol ), 20 MG PO HS Hydrocodone/Acetaminophen 5MG/325MG ([employer] 5MG/325MG), 1 TAB PO Q6 PRN for Pain Famotidine (Famotidine), 20 MG PO BID Ciprofloxacin (Ciprofloxacin HCl), 500 MG PO BID Ferrous Sulfate (Kp Ferrous Sulfate), 325 MG PO BID If you have any questions please call us at [phone] or [phone] or [phone]
--- NOTE | 2017-07-06 11:39 | DIAGNOSTIC IMAGING REPORT ---
CHEST PREADMISSION(PA/LAT) CLINICAL HISTORY: PAT preoperative evaluation COMPARISON STUDY: No previous studies for comparison. FINDINGS: The bones soft tissues and hemidiaphragms are normal. The cardiomediastinal silhouette is normal. The lungs are clear. The pulmonary vasculature is normal. IMPRESSION: Negative chest. The above report was generated using voice recognition software. It may contain grammatical, syntax or spelling errors. Electronically signed by: Tommy Valerio M.D. 07/06/2017 11:38 AM Dictated Date/Time: 07/06/2017 11:30 AM
[2017-07-06 12:01] LABS: BASO % 0.3 %; BASO ABS # 0.02 K/uL (0-0.2); EOS % 1.3 %; HEMATOCRIT 37.9 % (37-47); IG% 0.3 %; LYMPH ABS # 1.25 K/uL (1.2-3.4); MEAN CELL VOLUME 80.3 fL (80-100); MEAN CORPUSCULAR HGB CONC 31.1 g/dl (32-36); MEAN PLATELET VOLUME 11.5 fL (7.4-10.4); MONO % 6.6 %; NEUT % 71.5 %; PLATELET COUNT 257 K/uL (130-400); RED BLOOD COUNT 4.72 M/uL (4.2-5.4); WHITE BLOOD COUNT 6.25 K/uL (4.8-10.8)
[2017-07-06 12:04] LABS: URINE APPEARANCE CLEAR (CLEAR); URINE BILIRUBIN NEG (NEG); URINE COLOR YELLOW; URINE EPITHELIAL CELL AUTO 0-5 /lpf (0-5); URINE NITRITE NEG (NEG); URINE SPECIFIC GRAVITY 1.013 (1.000-1.030); UROBILINOGEN NEG (NEG)
[2017-07-06 12:11] LABS: MANUAL MICROSCOPIC REQUIRED? NO; REVIEW REQ? YES
[2017-07-06 12:23] LABS: ANISOCYTOSIS PRESENT; COMPLETE YES
[2017-07-06 13:49] LABS: BUN/CREATININE RATIO 14.2 (10-20); CALCIUM 9.4 mg/dl (8.5-10.1); CREATININE 1.84 mg/dl (0.60-1.20)
[~2017-07-12] VITALS: Ht 160 cm; Wt 110.3 kg
[~2017-07-12 09:00] MED LIST changes: +AMLO-114 PO; -ASPEC81 PO; +CIPROFLOXACIN / D5W 400 MG IV SCH; +CPR500 PO; +CZR50 PO; +FAMO1TAB47 PO; +FERR1TAB13 PO; +HYDR-5688 PO; -INSDGI SQ; +INSDGIPEN SC; +ISOS-10 PO; -ISOS60TA25 PO; -LOSA100T2 PO; -NAPR-1169 PO; -NITR-5 PO; -NVLGI SQ; +NVLGI/PEN SQ; -OMEP40CA PO; -PROB1CAP41 PO; -SITA1TAB27 PO; +SODIUM CHLORIDE 0.9% 1000ML 1,000 ML IV SCH; -SOTA80TA PO; -TAMS0.4C38 PO
[2017-07-12 09:48] VITALS: BP 180/76; PULSE 75; TEMP 36.6; O2SAT 99; Ht 160 cm; Wt 110.3 kg
--- NOTE | 2017-07-12 10:44 | History & Physical Bridge Note ---
H&P Re-Evaluation Bridge Note: I have examined the patient, reviewed the History & Physical and in the interval since the performance of the History & Physical I have noted the following changes of clinical significance: No changes noted
[2017-07-12] MEDS ORDERED: CONRAY 30% 150ML BOTTLE ONE (10:51)
[2017-07-12] MEDS ORDERED: FENTANYL CITRATE INJ 50 MCG/1 ML 2 ML VIAL ONE ×2 (10:55→12:40)
[2017-07-12] MEDS ORDERED: PROPOFOL IV EMULSION 10 MG/ML 20 ML VIAL IV ONE ×2 (10:55→11:29)
[2017-07-12] MEDS ORDERED: MIDAZOLAM HCL 1 MG/ML 2ML VIAL ONE (10:55)
[2017-07-12] MEDS ORDERED: LIDOCAINE HCL 2% 2 ML VIAL (20MG/ML) ONE (10:56)
[2017-07-12] MEDS ORDERED: ONDANSETRON INJ 2 MG/ML 2 ML VIAL ONE (11:29)
[2017-07-12] MEDS ORDERED: EpHEDrine SULFATE 50MG/5ML SYR ONE (11:29)
[2017-07-12] MEDS ORDERED: ATROPINE SULFATE 0.1 MG/ML 5ML SYR IV PRN (11:30)
[2017-07-12] MEDS ORDERED: LABETALOL HCL IV 5 MG/ML 20ML IV PRN (11:30)
[2017-07-12] MEDS ORDERED: ONDANSETRON INJ 2 MG/ML 2 ML VIAL IV PRN (11:30)
[2017-07-12] MEDS ORDERED: SODIUM CHLORIDE 0.9% 1000ML 1,000 ML IV SCH (11:48)
--- NOTE | 2017-07-12 11:51 | Discharge Instructions ---
Discharge Instructions Date of Service Jul 12, 2017. Admission Reason for Admission: Renal failure; hydronephrosis; bladder pain Discharge Discharge Diagnosis / Problem: reflux nephropathy; small, contracted, high pressure bladder Discharge Goals Goal(s): Decrease discomfort, Improve function, Increase independence, Improve disease control, Prevent Disease Progression Activity Recommendations Activity Limitations: resume your previous activity Lifting Limitations: none Exercise/Sports Limitations: none May Resume Sexual Activity: when tolerated Shower/Bathe: no limitations Driving or Machine Use: resume 1 day after discharge . Instructions / Follow-Up Instructions / Follow-Up Please keep your previously scheduled follow up appointment with Dr. Emanuel Discharge Diet Recommended Diet: Regular Diet Procedures Procedures Performed: cystoscopy with cystogram Pending Studies Studies pending at discharge: no Laboratory Results Lipid Panel Test 07/02/17 05:47 Range/Units Triglycerides Level 167 H 0-150 mg/dl Cholesterol Level 144 0-200 mg/dl HDL Cholesterol 29 mg/dl Cholesterol/HDL Ratio 5.0 LDL Cholesterol, Calculated 82 mg/dl Medical Emergencies . Who to Call and When: Medical Emergencies: If at any time you feel your situation is an emergency, please call 911 immediately. . Non-Emergent Contact Non-Emergency issues call your: Urologist Call Non-Emergent contact if: you have a fever, temperature is above 101.5, your pain is not controlled, your pain is worsening . . "Provider Documentation" section prepared by Perico Merritt. . VTE Core Measure Inpt VTE Proph given/why not?: Treatment not indicated
--- NOTE | 2017-07-12 11:57 | [facility] Operative Report ---
Operative Report Operative Date Jul 12, 2017. Pre-Operative Diagnosis renal failure with hydronephrosis Post-Operative Diagnosis contracted bladder; severe vesicoureteral reflux Procedure(s) Performed cystoscopy with cystogram Surgeon Dr. Emanuel Front Desk Agent Surgeon(s) none Estimated Blood Loss 5cc Findings Mildly friable, but overall healthy appearing bladder mucosa Severe vesico ureteral reflux (b/l) - bladder capacity of ~60cc. VUR starting immediately upon filling the bladder Specimens no specimen per surgeon Drains 16F cates Anesthesia Gen Complication(s) None Disposition Recovery Room / PACU (stable) Indications Renal failure - hydronephrosis Description of Procedure The patient was identified in the preoperative holding area, appropriate informed consent reviewed and completed. Patient was subsequently transported to the operating suite where she received appropriate preoperative antibiotics in the form of ciprofloxacin. Adequate general anesthesia was achieved, and she was placed in dorsal lithotomy position where she was sterilely prepped and draped in standard fashion. I begin the case by passing a 22 Hungarian cystoscope with 30 lens. Her bladder was immediately noted to be extremely small. Mucosa had mild irritation from her previously placed Cates catheter however no other tumors or other gross abnormalities. After distending her bladder and effort to evaluate the full extent of her bladder, I was noted that she had some capillary ooze from over distention despite full capacity being approximately 50-60 mL. I subsequently drained the bladder, and inserted a 16 Hungarian Cates catheter inflating the balloon with 5 mL of sterile water mixed with contrast (to help serve as a reference to the size of the bladder. I subsequently begin passively adding contrast and saline to the bladder via the catheter. This was gravity fed. She felt approximately 50-60 mL for there is no other passive filling. Unit the small capacity she showed evidence of early reflux. I attempted to maximally distended with further additions of saline and contrast, and this showed severe reflux. After adding less than 100 mL total of contrast saline mixture, I concluded the cystogram portion of this case as there is clear demonstration of severe vesicoureteral reflux bilaterally. Of note, both ureters were in excess of 1 cm in diameter from the reflux alone. I subsequently drain the bladder left Cates catheter in place. She was extubated and taken to the PACU in stable condition. I fear that the small capacity high-pressure bladder with subsequent high-grade reflux may lead to an untenable situation for her bladder. In the short-term we 'll manage her with a Cates catheter but we will likely consider referral for possible urinary diversion in the future. I attest to the content of the Intraoperative Record and any orders documented therein. Any exceptions are noted below.
[2017-07-12] MEDS ORDERED: HYDROCODONE/ACETAMOPHEN 5/325MG TAB PO PRN ×2 (12:00)
[2017-07-12] MEDS ORDERED: LARYING-O-JET KIT (LTA) ONE ×2 (12:26)
[2017-07-12] MEDS: FENTANYL CITRATE INJ 50 MCG/1 ML 2 ML VIAL IV PRN ×2 (12:40→12:48)
[2017-07-12 13:15] VITALS: BP 155/72; PULSE 74; TEMP 36.5; O2SAT 96
--- NOTE | 2017-07-12 13:20 | Anesthesiology Progress Note ---
Anesthesia Post Op Note Date & Time Jul 12, 2017 at 13:20 Vital Signs Vital Signs Past 12 Hours Date Time Temp Pulse Resp B/P (MAP) Pulse Ox O2 Delivery O2 Flow Rate FiO2 07/12/17 13:11 36.1 07/12/17 13:00 72 20 146/68 96 Room Air 07/12/17 12:50 74 18 155/75 98 Room Air 07/12/17 12:40 77 18 144/73 95 Room Air 07/12/17 12:30 80 18 164/70 98 Room Air 07/12/17 12:20 84 21 163/74 97 Room Air 07/12/17 12:10 83 17 138/64 98 Room Air 07/12/17 12:00 86 16 159/70 100 Oxymask 10 07/12/17 11:50 37.0 71 16 146/70 100 Oxymask 10 07/12/17 09:48 36.6 75 20 180/76 (110) 99 Room Air Notes Mental Status: alert / awake / arousable, participated in evaluation Pt Amnestic to Procedure: Yes Nausea / Vomiting: adequately controlled Pain: adequately controlled Airway Patency, RR, SpO2: stable & adequate BP & HR: stable & adequate Hydration State: stable & adequate Anesthetic Complications: no major complications apparent
[2017-07-12 13:49] VITALS: BP 152/67; PULSE 73; O2SAT 99
[2017-07-12 14:15] VITALS: BP 152/69; PULSE 83; O2SAT 99
== END 2017-07-12 14:45 | disposition home or self-care (01) ==
LOC: C.ACU 09:00
PROVIDERS: ATTEND Urology
DX: N32.89 Other specified disorders of bladder (principal); N13.70 Vesicoureteral-reflux, unspecified; N39.0 Urinary tract infection, site not specified; R31.0 Gross hematuria; N32.9 Bladder disorder, unspecified; M19.90 Unspecified osteoarthritis, unspecified site; I25.10 Atherosclerotic heart disease of native coronary artery without angina pectoris; E11.9 Type 2 diabetes mellitus without complications; E78.00 Pure hypercholesterolemia, unspecified; I38 Endocarditis, valve unspecified; I12.9 Hypertensive chronic kidney disease with stage 1 through stage 4 chronic kidney disease, or unspecified chronic kidney disease; N18.3 Chronic kidney disease, stage 3 (moderate); N30.10 Interstitial cystitis (chronic) without hematuria; E66.9 Obesity, unspecified; K21.9 Gastro-esophageal reflux disease without esophagitis; Z83.3 Family history of diabetes mellitus; Z82.49 Family history of ischemic heart disease and other diseases of the circulatory system; Z79.4 Long term (current) use of insulin; Z90.710 Acquired absence of both cervix and uterus; Z96.653 Presence of artificial knee joint, bilateral; Z95.818 Presence of other cardiac implants and grafts